=== PATIENT | female | born 1935 | race Caucasian/White ===

== ENCOUNTER → 2017-04-17 | Outpatient (CLI) | payer OTHER ==
[~2017-04-17] MED LIST: ACET-1257 PO; ADVIN10/60 INH; ISOS30TA35 PO; LEVO88TA21 PO; LEVO88TA3 PO; METO200T29 PO; NITR-5 PO; OXYC-57 PO; clindamycin
== END | disposition home or self-care (01) ==
LOC: C.LABSPEC 16:02
PROVIDERS: ATTEND Urology
DX: N20.0 Calculus of kidney (principal)

== ENCOUNTER → 2017-04-17 | Outpatient (CLI) | payer OTHER ==
--- NOTE | 2017-04-17 13:19 | DIAGNOSTIC IMAGING REPORT ---
KUB HISTORY: Follow-up study in a patient with right-sided nephrolithiasis. N20.0 Kidney stone on right [id number] COMPARISON: CT abdomen and pelvis 01/13/2012 FINDINGS: The bowel gas pattern is non-obstructive. There is no organomegaly. Calcifications projecting over the right kidney suggest nephrolithiasis measuring up to 1.7 and 1.1 cm respectively. No definite calculi are seen along the course of either ureter or within the region of the left kidney. There is a large amount of bowel gas which obscures the left renal shadow and partially obscures the right. Moderate stool volume of the rectum. No pneumoperitoneum or pneumatosis. No fracture. Bones appear moderately demineralized. Degenerative changes are seen throughout the spine with dextroscoliosis of the lumbar spine. IMPRESSION: 1. Large right-sided nephrolithiasis without definite ureteral calculi identified. 2. Left renal shadow is obscured by bowel gas. 3. Suggested constipation. Electronically signed by: Wilbert Sparrow M.D. 04/17/2017 1:18 PM Dictated Date/Time: 04/17/2017 1:15 PM
== END | disposition home or self-care (01) ==
LOC: C.RAD 11:54
PROVIDERS: ATTEND Urology
DX: N20.0 Calculus of kidney (principal)

== ENCOUNTER → 2017-05-01 | Day surgery (SDC) | payer OTHER ==
[2017-04-21 14:52] VITALS: Ht 157.5 cm; Wt 89.5 kg
--- NOTE | 2017-04-22 11:49 | DIAGNOSTIC IMAGING REPORT ---
CHEST 2 VIEWS ROUTINE CLINICAL HISTORY: STONES PREOPERATIVE CHEST COMPARISON STUDY: October 2011 FINDINGS: The examination is rotated. There is aortic tortuosity/ectasia. The heart is mildly enlarged. There is no failure. There is no focal pulmonary consolidation. There are no pleural effusions. Surgical clips project over the right axillary region. Irregularity of the right humeral head, likely is arthritic.[ IMPRESSION: No active disease in the chest. Electronically signed by: George Levi M.D. 04/22/2017 11:48 AM Dictated Date/Time: 04/22/2017 11:47 AM
[2017-04-22 12:18] LABS: BASO % 1.1 %; BASO ABS # 0.08 K/uL (0-0.2); EOS % 5.5 %; HEMATOCRIT 44.5 % (37-47); HEMOGLOBIN 15.4 g/dL (12.0-16.0); IG# 0.01 K/uL (0.00-0.02); LYMPH ABS # 0.95 K/uL (1.2-3.4); MEAN CELL VOLUME 91.2 fL (80-100); MEAN CORPUSCULAR HEMOGLOBIN 31.6 pg (25-34); MEAN CORPUSCULAR HGB CONC 34.6 g/dl (32-36); MEAN PLATELET VOLUME 9.8 fL (7.4-10.4); MONO % 10.8 %; MONO ABS # 0.79 K/uL (0.11-0.59); NEUT % 69.5 %; NEUT ABS # 5.09 K/uL (1.4-6.5); PLATELET COUNT 285 K/uL (130-400); RED CELL DISTRIBUTION WIDTH CV 12.7 % (11.5-14.5); RED CELL DISTRIBUTION WIDTH SD 42.2 fL (36.4-46.3); WHITE BLOOD COUNT 7.32 K/uL (4.8-10.8)
[2017-04-22 12:37] LABS: CREATININE 0.6 mg/dl (0.60-1.20); POTASSIUM 4.5 mmol/L (3.5-5.1)
--- NOTE | 2017-04-30 15:54 | DIAGNOSTIC IMAGING REPORT ---
KUB HISTORY: Follow-up study in a patient with nephrolithiasis N20.0 Kidney stone on right [id number] COMPARISON: KUB 04/17/2017, CT 03/13/2017. FINDINGS: The bowel gas pattern is non-obstructive. There is no organomegaly. There are 2 large right-sided renal calculi measuring up to 1.9 and 1.2 cm at the level of L3-L4 which appear unchanged considering difference in patient positioning. No definite left-sided nephrolithiasis or ureteral calculi identified. Renal shadows partially obscured by bowel gas. No pneumoperitoneum or pneumatosis. No fracture. Dextroscoliosis of the lumbar spine with severe multilevel discogenic degenerative changes. Mild to moderate degenerative changes of the bilateral hips. IMPRESSION: 1. Unchanged positioning of large right-sided renal calculi. 2. No ureteral calculi identified. Electronically signed by: Wilbert Sparrow M.D. 04/30/2017 3:53 PM Dictated Date/Time: 04/30/2017 3:51 PM
[~2017-05-01] VITALS: Ht 157.5 cm; Wt 89.5 kg
[~2017-05-01] MED LIST changes: +ACETAMINOPHEN 1000 MG/100 ML IV IV ONE; +ATROPINE SULFATE 0.1 MG/ML 5ML SYR IV PRN; +DEXAMETHASONE SOD INJ 4 MG/ML VIAL ONE; +EpHEDrine SULFATE INJ 50 MG/ML AMP IV PRN; +EpHEDrine SULFATE INJ 50 MG/ML AMP ONE; +FENTANYL CITRATE INJ 50 MCG/1 ML 2 ML VIAL IV PRN; +FENTANYL CITRATE INJ 50 MCG/1 ML 2 ML VIAL ONE; +GENTAMICIN INJ 80 MG in DEXTROSE 5% 100ML 100 ML IV SCH; +GENTAMICIN SULFATE 40 MG/ML 2 ML VIAL ONE; -ISOS30TA35 PO; +LACTATED RINGER'S 1000ML 1,000 ML IV SCH; -LEVO88TA21 PO; +LIDOCAINE HCL 2% 2 ML VIAL (20MG/ML) ONE; +MIDAZOLAM HCL 1 MG/ML 2ML VIAL ONE; +NITR1CAP33 PO; +ONDANSETRON INJ 2 MG/ML 2 ML VIAL IV PRN; +ONDANSETRON INJ 2 MG/ML 2 ML VIAL ONE; +PROPOFOL IV EMULSION 10 MG/ML 20 ML VIAL IV ONE; +SODIUM CHLORIDE 0.9% INJ 10 ML VIAL ONE; -clindamycin
--- NOTE | 2017-05-01 07:51 | History & Physical Bridge - SC ---
H&P Re-Evaluation Bridge Note: I have examined the patient, reviewed the History & Physical and in the interval since the performance of the History & Physical I have noted the following changes of clinical significance: No changes noted
--- NOTE | 2017-05-01 09:12 | Discharge Instructions-SurgCtr ---
Discharge Instructions Date of Service May 01, 2017. Visit Reason for Visit: Stones;Kidney On Right Side Discharge Discharge Diagnosis / Problem: post op eswl Discharge Goals Goal(s): Increase independence, Improve disease control Activity Recommendations Activity Limitations: resume your previous activity Anesthesia . Post Anesthesia Instructions: If you have had General Anesthesia or IV Sedation: * Do not drive today. * Resume driving when surgeon permits. * Do not make important decisions or sign legal documents today. * Call surgeon for: 1. Temperature elevations greater than 101 degrees F. 2. Uncontrollable pain. 3. Excessive bleeding. 4. Persistent nausea and vomiting. 5. Medication intolerance (nausea, vomiting or rash). * For nausea and vomiting use only clear liquids such as: tea, soda, bouillon until nausea subsides, then gradually increase diet as tolerated. * If you have any concerns or questions, call your surgeon's office. If physician is unavailable and it is an emergency, call 911 or go to the nearest emergency room. . Diet Recommendations Home Diet: resume previous diet Procedures Procedures Performed: Right Extracorporeal Shock Wave Lithotripsy -Renal Pending Studies Studies pending at discharge: no Medical Emergencies . Who to Call and When: Medical Emergencies: If at any time you feel your situation is an emergency, please call 911 immediately. . Non-Emergent Contact Non-Emergency issues call your: Urologist Call Non-Emergent contact if: temperature is above 100.5, your pain is worsening . . "Provider Documentation" section prepared by Mike Lamas. .
--- NOTE | 2017-05-01 09:13 | [facility] Post Operative Brief Note ---
Immediate Operative Summary Operative Date May 01, 2017. Pre-Operative Diagnosis Right Renal Stone Post-Operative Diagnosis Same as pre-op Procedure(s) Performed Right Extracorporeal Shock Wave Lithotripsy -Renal Surgeon Dr. Wil Lamas Workforce [employer]anner Surgeon(s) None Estimated Blood Loss 0 mL Findings Consistent with Post-Op Diagnosis Specimens None Anesthesia Type General
[2017-05-01 10:26] VITALS: TEMP 36.3
--- NOTE | 2017-05-01 10:51 | Anesthesiology Progress Note ---
Anesthesia Post Op Note Date & Time May 01, 2017 at 10:51 Vital Signs Pain Intensity: 0 Vital Signs Past 12 Hours Date Time Temp Pulse Resp B/P (MAP) Pulse Ox O2 Delivery O2 Flow Rate FiO2 05/01/17 10:26 36.3 58 20 187/85 (119) 95 Room Air 05/01/17 10:18 55 16 96 05/01/17 10:18 56 16 05/01/17 10:18 55 16 96 05/01/17 10:18 56 16 05/01/17 10:16 191/86 05/01/17 10:16 191/86 05/01/17 10:15 36.3 56 16 191/86 96 Room Air 05/01/17 10:13 56 1 05/01/17 10:13 56 1 96 05/01/17 10:13 56 1 05/01/17 10:13 56 1 96 05/01/17 10:10 191/85 05/01/17 10:10 191/85 05/01/17 10:08 55 15 96 05/01/17 10:08 55 15 96 05/01/17 10:08 55 15 05/01/17 10:08 55 15 05/01/17 10:06 193/89 05/01/17 10:06 193/89 05/01/17 10:03 55 0 05/01/17 10:03 55 0 05/01/17 10:03 55 0 96 05/01/17 10:03 55 0 96 05/01/17 10:00 179/86 05/01/17 10:00 179/86 05/01/17 09:59 161/115 05/01/17 09:59 161/115 05/01/17 09:58 56 15 05/01/17 09:58 56 15 05/01/17 09:58 56 15 97 05/01/17 09:58 56 15 97 05/01/17 09:53 56 22 05/01/17 09:53 56 22 96 05/01/17 09:53 56 22 96 05/01/17 09:53 56 22 05/01/17 09:43 60 05/01/17 09:43 60 99 05/01/17 09:43 60 99 05/01/17 09:43 60 05/01/17 09:40 203/104 05/01/17 09:40 203/104 05/01/17 09:38 61 11 100 05/01/17 09:38 61 11 05/01/17 09:38 61 11 100 05/01/17 09:38 61 11 05/01/17 09:36 197/113 05/01/17 09:36 197/113 05/01/17 09:33 61 1 100 05/01/17 09:33 61 1 100 05/01/17 09:33 62 1 05/01/17 09:33 62 1 05/01/17 09:30 203/103 05/01/17 09:30 203/103 05/01/17 09:28 59 13 05/01/17 09:28 59 13 05/01/17 09:28 61 13 100 05/01/17 09:28 61 13 100 05/01/17 09:26 200/99 05/01/17 09:26 200/99 05/01/17 09:25 199/99 05/01/17 09:25 199/99 05/01/17 09:23 64 5 193/106 100 05/01/17 09:23 36.2 65 18 193/106 100 Mask 6 05/01/17 09:23 64 5 05/01/17 09:23 64 5 05/01/17 09:23 64 5 193/106 100 05/01/17 06:30 36.5 64 16 168/98 (121) 97 Room Air Notes Mental Status: alert / awake / arousable, participated in evaluation Pt Amnestic to Procedure: Yes Nausea / Vomiting: adequately controlled Pain: adequately controlled Airway Patency, RR, SpO2: stable & adequate BP & HR: stable & adequate Hydration State: stable & adequate Anesthetic Complications: no major complications apparent
--- NOTE | 2017-05-01 10:52 | OPERATIVE REPORT ---
DATE OF OPERATION: 05/01/2017 PROCEDURE PERFORMED: Right ESWL. SURGEON: Dr. Lamas. ANESTHESIA: General. POSTOPERATIVE DIAGNOSIS: Same. INDICATIONS: The patient is an 82-year-old female with 2 relatively large right lower pole stones here for ESWL. DESCRIPTION OF THE PROCEDURE: The patient was given general anesthesia and preoperative antibiotics, was taken to the operating room with general anesthesia was given in the supine position. The stone that was more medial and close of the renal pelvis was targeted and 2500 shocks were given. The stone appeared light, so the hope was that it would fragment easily, but it did not appear to be fragmented rapidly. In the middle of the procedures, she was taken to level 5 and the procedure was completed, it was not clear that there was good fragmentation, but it was unclear how to what extent the fragmentation was done, the lower pole stone was targeted because it appeared that the other stone will require all the shocks. At the end of the procedure, the patient was transferred to the recovery room in stable condition. I attest to the content of the Intraoperative Record and any orders documented therein. Any exception s are noted below.
[2017-05-01 11:05] VITALS: BP 159/75; PULSE 60; O2SAT 97
== END | disposition home or self-care (01) ==
LOC: X.SURG 06:03
PROVIDERS: ATTEND Urology
DX: N20.0 Calculus of kidney (principal); J45.909 Unspecified asthma, uncomplicated; I10 Essential (primary) hypertension; M19.90 Unspecified osteoarthritis, unspecified site; E03.9 Hypothyroidism, unspecified; Z79.899 Other long term (current) drug therapy; Z98.890 Other specified postprocedural states; Z90.710 Acquired absence of both cervix and uterus; Z85.3 Personal history of malignant neoplasm of breast; Z86.19 Personal history of other infectious and parasitic diseases; Z88.0 Allergy status to penicillin; Z88.1 Allergy status to other antibiotic agents; Z88.2 Allergy status to sulfonamides

== ENCOUNTER → 2017-05-13 | Outpatient (CLI) | payer MEDICARE ==
[~2017-05-13] MED LIST changes: -ACETAMINOPHEN 1000 MG/100 ML IV IV ONE; -ATROPINE SULFATE 0.1 MG/ML 5ML SYR IV PRN; -DEXAMETHASONE SOD INJ 4 MG/ML VIAL ONE; -EpHEDrine SULFATE INJ 50 MG/ML AMP IV PRN; -EpHEDrine SULFATE INJ 50 MG/ML AMP ONE; -FENTANYL CITRATE INJ 50 MCG/1 ML 2 ML VIAL IV PRN; -FENTANYL CITRATE INJ 50 MCG/1 ML 2 ML VIAL ONE; -GENTAMICIN INJ 80 MG in DEXTROSE 5% 100ML 100 ML IV SCH; -GENTAMICIN SULFATE 40 MG/ML 2 ML VIAL ONE; -LACTATED RINGER'S 1000ML 1,000 ML IV SCH; -LIDOCAINE HCL 2% 2 ML VIAL (20MG/ML) ONE; -MIDAZOLAM HCL 1 MG/ML 2ML VIAL ONE; -ONDANSETRON INJ 2 MG/ML 2 ML VIAL IV PRN; -ONDANSETRON INJ 2 MG/ML 2 ML VIAL ONE; -PROPOFOL IV EMULSION 10 MG/ML 20 ML VIAL IV ONE; -SODIUM CHLORIDE 0.9% INJ 10 ML VIAL ONE
== END | disposition home or self-care (01) ==
LOC: C.LABSPEC 17:14
PROVIDERS: ATTEND Urology
DX: N20.0 Calculus of kidney (principal)

== ENCOUNTER → 2017-05-13 | Outpatient (CLI) | payer MEDICARE ==
--- NOTE | 2017-05-13 11:59 | DIAGNOSTIC IMAGING REPORT ---
KUB CLINICAL HISTORY: Nephrolithiasis. COMPARISON STUDY: CT of the abdomen and pelvis March 13, 2017 and KUB April 30, 2017. FINDINGS: A right pelvic calcification was shown to represent a phlebolith on prior CT. There has been interval fragmentation of the right renal calculi since KUB of April 30, 2017. In aggregate, the fragments within lower pole measure 1.7 cm. No ureteral calculi or fragments are identified. There is a large amount stool within the colon and rectum. There is no evidence for a bowel obstruction. IMPRESSION: Interval fragmentation of right renal calculi. Clustered fragment/calculi within the mid to lower pole of the right kidney. No ureteral calculi identified. Electronically signed by: Shahram Enriquez M.D. 05/13/2017 11:57 AM Dictated Date/Time: 05/13/2017 11:52 AM
== END | disposition home or self-care (01) ==
LOC: C.RAD 11:10
PROVIDERS: ATTEND Urology
DX: N20.0 Calculus of kidney (principal)

== ENCOUNTER 2023-03-03 09:58 | Inpatient (IN) ==
--- NOTE | 2023-03-03 10:24 | Emergency Department Note ---
Impression & Plan Acute metabolic encephalopathy, Confusion ED Provider Note NAME: KAYLEN TOLEDO AGE: 87 SEX: F : 1935 ARRIVES VIA: Walk-In INFORMANT: Patient, ED PROVIDER(S): Speedy Olvera MD CHIEF COMPLAINT: Confusion, hallucinations MEDICAL DECISION MAKING: Patient presents at the [facility] [place] outpatient clinic that exhibited confusion associated clearly with hallucinations. The patient does endorse hearing voices. IV was established but was obtained along with CT of the head and urinalysis. Patient was ordered IV fluids. Patient does have some decreased range of motion of the right upper extremity which sounds as though is chronic and she does endorse lymphedema and chronic issues. I did obtain some additional history from the patient's brother states that she has not been acting appropriately and has confused. Patient's blood work shows a normal white count H&H and platelet count. Kidney function with creatinine 1.3. TSH is elevated with normal free T4. Urinalysis does not look grossly infected. Bio fire negative. I did speak with the on- call hospital service Heena Richard PA-C the patient was admitted by Dr. Wilkinson. I did discuss starting the patient on antibiotics given the patient's history of partially treated UTI. Inpatient service order antibiotics. Discussion w/ other healthcare providers: Heena Richard PA-C and Dr. Wilkinson inpatient medicine Prior /Outside records reviewed: I reviewed a clinic assessment from [facility] from March 03. The patient was seen for kidney stone flank pain and confusion urine culture was ordered patient reportedly was to advised to go to the emergency department. Patient was seen on 02 20 at [facility] for left flank pain and had a CAT scan that showed an 11 mm left renal pelvis stone with mild hydro-. Patient was seen for flank pain at that time on February [address] [facility] Patient CT showed bilateral nephrolithiasis with 1.2 cm nonobstructing left renal pelvis calculus. They discussed her care with the patient's primary care office Poonam Schroeder PA-C and they referred here for further evaluation and treatment Differential diagnosis: Infection, dehydration, metabolic abnormality, hypo/hyperglycemia, electrolyte imbalance, anemia, UTI, pneumonia, thyroid dysfunction among others were considered. Diagnostics, as interpreted by me: ECG: Normal sinus rhythm, rate of 62, normal intervals, normal axis no ST elevations.6 Cardiac monitoring: An order was placed for continuous cardiac monitoring. The monitor shows a rate of 65 with sinus rhythm. Patient was placed on pulse oximetry Medical decision rules: None Imaging studies: I informally interpreted the patient's CT head which does not show obvious ICH with formal report to follow. I informally interpreted the patient's chest x-ray which does not show obvious pneumonia or pneumothorax with formal report to follow HPI: Patient presents due to concern for reported confusion and hallucinations. Additional history is gathered from triage and nursing which note that the patient was recently released from [facility] this morning for altered mental status and cellulitis. Patient reportedly had followed up at [address] [place] [address] for urology appointment and was suffering from confusion and hallucinations and was referred here. Patient does reside at [facility] and the certified driver examiner reportedly has noticed the symptoms ongoing 10 to 14 days. Patient denies any head or neck pain. No loose stools. Patient [place] any cough or fever or shortness of breath or chest pain. No back or abdominal pain. Patient does not describe any dysuria or hematuria patient does endorse hearing voices. PAST MEDICAL HISTORY: See Below PAST SURGICAL HISTORY: See Below SOCIAL HISTORY: See Below HOME MEDICATIONS: See Below ALLERGIES: See Below VITALS: See Below PHYSICAL EXAMINATION: GENERAL: NAD, non-toxic. Wearing glasses. Occasional laughing. EYE EXAM: Normal conjunctiva. PERRL, no anisocoria and EOM's grossly intact w/o pain. OROPHARYNX: Moist mucus membranes, grossly normal dentition. NECK: Supple, no nuchal rigidity, no adenopathy, non-tender. No signs of meningismus. FROM of the neck with good chin to chest and neck extension. No stridor. LUNGS: Clear to auscultation. Normal chest wall mechanics. HEART: NSR, no MRG. ABDOMEN: Abdomen soft, non-tender, no masses, no rebound or guarding. BACK: No CVA TTP. SKIN: No rashes and no bruising. UPPER EXTREMITIES: Upper extremities are grossly normal. Decreased range of motion of right upper extremity. LOWER EXTREMITIES: Grossly normal, no edema. NEURO EXAM: Awake and alert, follows basic commands, oriented to person place simple arithmetic, unsure as to the day of the week, cranial nerves II-XII grossly intact, normal speech, moves all 4 extremities. 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 Osteoarthritis Lymphedema of right arm History of cancer of right breast 2000- lumpectomy/radiation Anxiety and depression HTN (hypertension) Asthma Recurrent nephrolithiasis Surgical History History of knee surgery History of cardiac cath 05/2022 (d/t abnormal EKG/stress test)- no significant findings Nausea and vomiting after administration of anesthetic agent PONV with first lithotripsy procedure ("told had too much anesthesia for"), "given less anesthesia" with subsequent lithotripsy and had no issues with PONV History of total left knee replacement History of lithotripsy x2 History of colonoscopy History of total abdominal hysterectomy and bilateral salpingo-oophorectomy History of arthroscopy of knee Lateral Meniscectomy History of eye surgery History of cystoscopy Status post breast lumpectomy right Family History Sister Family history of diabetes mellitus Other Family history of colon cancer in mother Denies family history of Prostate cancer Social History Smoking Status: Unknown if ever smoked Second Hand Exposure: No; Do You Dip or Chew Tobacco: No; Hx Alcohol Use: No Hx Substance Use: No Preferred Language: Mongolian Communication Ability: Impaired Can Maker Required: No Beliefs That Will Affect Care: None Current Living Situation: Long-Term Current Living Situation Comment: [facility] Other Information That Helps Us Care for You: No Feels Safe at Home: Yes Safety Concerns: Feels Safe At This Time Assistive Devices: Cane Allergies Allergies Allergy/AdvReac Type Severity Reaction Status Date / Time celecoxib Allergy Intermediate ? Facial Verified 02/26/23 16:53 swelling ampicillin Allergy Unknown CAN'T Verified 02/26/23 16:53 REMEMBER cefprozil Allergy Unknown CAN'T Verified 02/26/23 16:53 REMEMBER ciprofloxacin Allergy Unknown CAN'T Verified 02/26/23 16:53 REMEMBER levofloxacin Allergy Unknown CAN'T Verified 02/26/23 16:53 REMEMBER lisinopril Allergy Unknown CAN'T Verified 02/26/23 16:53 REMEMBER Sulfa (Sulfonamide Allergy Unknown CAN'T Verified 02/26/23 16:53 Antibiotics) REMEMBER valdecoxib Allergy Unknown CAN'T Verified 02/26/23 16:53 REMEMBER ibuprofen AdvReac Intermediate Heart Verified 02/26/23 16:53 racing Home Meds Home Medications Medication Instructions Recorded Confirmed fluticasone 100 mcg-salmeterol 50 1 inh inhalation AMPM PRN ASTHMA 12/10/21 03/03/23 mcg/dose blistr powdr for inhalation levothyroxine 100 mcg capsule 100 mcg PO QAM 12/10/21 03/03/23 sertraline 50 mg tablet 50 mg PO QAM 12/10/21 03/03/23 albuterol sulfate 90 mcg/actuation 2 inh inhalation QID PRN Shortness 03/03/23 03/03/23 aerosol inhaler (Ventolin HFA) Of Breath Or Wheezing amlodipine 5 mg tablet 5 mg PO DAILY 03/03/23 03/03/23 furosemide 40 mg tablet 40 mg PO DAILY PRN volume 03/03/23 03/03/23 metoprolol succinate 200 mg 200 mg PO DAILY 03/03/23 03/03/23 tablet,extended release 24 hr (Toprol XL) prednisone 5 mg tablet See Rx Instructions .Route .COMPLEX 03/03/23 03/03/23 sulfamethoxazole 800 1 tab PO BID 03/03/23 03/03/23 mg-trimethoprim 160 mg tablet tocilizumab 400 mg/20 mL (20 520 mg IV UD 03/03/23 03/03/23 mg/mL) intravenous solution Previous Rx's Medication Instructions Recorded tramadol 50 mg tablet 50 mg PO BID PRN pain #11 tabs 02/26/23 Results & Data (ED) Vital Signs Vital Signs - 24 hr 03/03/23 10:08 03/03/23 10:31 Temperature 36.4 C L Temperature Source Oral Pulse Rate 62 66 Respiratory Rate 14 Blood Pressure 117/84 Blood Pressure Mean 95 Pulse Oximetry 93 Oxygen Delivery Method Room Air Sepsis New/Unexplained Change in Mental Status Yes Sepsis Action Taken by Nursing No Action Required Home Medications Current Medication List: was personally reviewed by me Laboratory Data Attestation: I reviewed the patient's lab results. 03/04/23 06:56 03/04/23 06:56 Lab Results 03/03/23 03/03/23 03/03/23 Range/Units 10:31 11:33 11:55 WBC 6.84 (4.8-10.8) K/ul RBC 4.71 (4.20-5.40) M/uL Hgb 15.2 (12.0-16.0) g/dl Hct 44.9 (37.0-47.0) % MCV 95.3 (80.0-100.0) fL MCH 32.3 (25.0-34.0) pg MCHC 33.9 (32.0-36.0) g/dL RDW Std Deviation 48.1 H (36.4-46.3) fL RDW Coeff of Parvin 13.6 (11.5-14.5) % Plt Count 247 (130-400) K/uL MPV 9.9 (9.4-12.4) fL Immature Gran % (Auto) 0.7 % Neut % (Auto) 72.6 % Lymph % (Auto) 13.7 % [place] % (Auto) 10.4 % Eos % (Auto) 1.9 % Baso % (Auto) 0.7 % Neut # (Auto) 4.96 (1.40-6.50) K/uL Lymph # (Auto) 0.94 L (1.20-3.40) K/uL [place] # (Auto) 0.71 H (0.11-0.59) K/uL Eos # (Auto) 0.13 (0.00-0.50) K/uL Baso # (Auto) 0.05 (0.00-0.20) K/uL Immature Gran # (Auto) 0.05 (0.01-0.20) K/uL Sodium 133 L (136-145) mmol/L Potassium TNP 3.4 L Chloride 95 L (98-107) mmol/L Carbon Dioxide 28 (21-32) mmol/L Anion Gap 10 (3-11) BUN 25 H (6-23) mg/dl Creatinine 1.33 H (0.6-1.2) mg/dl Est Cr Clr Drug Dosing Not Reportable Est GFR ( Amer) 42.1 ml/min Est GFR (Non-Af Amer) 36.4 ml/min BUN/Creatinine Ratio 18.8 (10-20) Glucose 108 H (70-99(Fasting)) mg/dl Calcium 9.7 (8.6-10.3) mg/dl Magnesium 1.8 (1.7-2.4) mg/dl Total Bilirubin 1.0 (0.2-1.0) mg/dl AST TNP 20 ALT 12 (7-52) U/L Alkaline Phosphatase 56 (34-104) U/L Total Protein 6.3 (6.0-8.3) gm/dl Albumin 4.1 (3.4-5.0) gm/dl Globulin 2.2 L (2.5-4.0) gm/dl Albumin/Globulin Ratio 1.9 (0.9-2) TSH 6.578 H (0.300-4.500) uIu/ml Free T4 1.54 (0.61-1.60) ng/dl Urine Color Urine Appearance (Clear) Urine pH (4.5-7.5) Ur Specific [place] (1.000-1.030) Urine Protein (Negative) Urine Glucose (UA) (Negative) Urine Ketones (Negative) Urine Blood (Negative) Urine Nitrite (Negative) Urine Bilirubin (Negative) Urine Urobilinogen (Negative) Ur Leukocyte Esterase (Negative) Urine WBC (Auto) (0-5) /hpf Urine RBC (Auto) (0-4) /hpf U Hyaline Cast (Auto) (0-5) /lpf U Epithel Cells (Auto) (0-5) /lpf Urine Bacteria (Auto) (Negative) Adenovirus (PCR) Not Detected (NotDetected) B. pertussis DNA (PCR) Not Detected (NotDetected) B.parapertussis DNA PCR Not Detected (NotDetected) C. pneumoniae DNA (PCR) Not Detected (NotDetected) Coronavirus OC43 (PCR) Not Detected (NotDetected) Coronavirus HKU1 (PCR) Not Detected (NotDetected) Coronavirus 229E (PCR) Not Detected (NotDetected) SARS-CoV-2 (PCR) Not Detected (NotDetected) Coronavirus NL63 (PCR) Not Detected (NotDetected) Human Metapneumovir PCR Not Detected (NotDetected) Influenza Type A (PCR) Not Detected (NotDetected) Influenza Type B (PCR) Not Detected (NotDetected) M. pneumoniae (PCR) Not Detected (NotDetected) Parainfluenza 1 (PCR) Not Detected (NotDetected) Parainfluenza 2 (PCR) Not Detected (NotDetected) Parainfluenza 3 (PCR) Not Detected (NotDetected) Parainfluenza 4 (PCR) Not Detected (NotDetected) RSV (PCR) Not Detected (NotDetected) Entero/Rhino (PCR) Not Detected (NotDetected) 03/03/23 Range/Units 12:15 WBC (4.8-10.8) K/ul RBC (4.20-5.40) M/uL Hgb (12.0-16.0) g/dl Hct (37.0-47.0) % MCV (80.0-100.0) fL MCH (25.0-34.0) pg MCHC (32.0-36.0) g/dL RDW Std Deviation (36.4-46.3) fL RDW Coeff of Parvin (11.5-14.5) % Plt Count (130-400) K/uL MPV (9.4-12.4) fL Immature Gran % (Auto) % Neut % (Auto) % Lymph % (Auto) % [place] % (Auto) % Eos % (Auto) % Baso % (Auto) % Neut # (Auto) (1.40-6.50) K/uL Lymph # (Auto) (1.20-3.40) K/uL [place] # (Auto) (0.11-0.59) K/uL Eos # (Auto) (0.00-0.50) K/uL Baso # (Auto) (0.00-0.20) K/uL Immature Gran # (Auto) (0.01-0.20) K/uL Sodium (136-145) mmol/L Potassium Chloride (98-107) mmol/L Carbon Dioxide (21-32) mmol/L Anion Gap (3-11) BUN (6-23) mg/dl Creatinine (0.6-1.2) mg/dl Est Cr Clr Drug Dosing Est GFR ( Amer) ml/min Est GFR (Non-Af Amer) ml/min BUN/Creatinine Ratio (10-20) Glucose (70-99(Fasting)) mg/dl Calcium (8.6-10.3) mg/dl Magnesium (1.7-2.4) mg/dl Total Bilirubin (0.2-1.0) mg/dl AST ALT (7-52) U/L Alkaline Phosphatase (34-104) U/L Total Protein (6.0-8.3) gm/dl Albumin (3.4-5.0) gm/dl Globulin (2.5-4.0) gm/dl Albumin/Globulin Ratio (0.9-2) TSH (0.300-4.500) uIu/ml Free T4 (0.61-1.60) ng/dl Urine Color Yellow Urine Appearance Clear (Clear) Urine pH 5.0 (4.5-7.5) Ur Specific [place] 1.012 (1.000-1.030) Urine Protein Trace H (Negative) Urine Glucose (UA) Negative (Negative) Urine Ketones Trace H (Negative) Urine Blood 2+ H (Negative) Urine Nitrite Negative (Negative) Urine Bilirubin Negative (Negative) Urine Urobilinogen Negative (Negative) Ur Leukocyte Esterase Negative (Negative) Urine WBC (Auto) 1-5 (0-5) /hpf Urine RBC (Auto) 10-30 H (0-4) /hpf U Hyaline Cast (Auto) 1-5 (0-5) /lpf U Epithel Cells (Auto) 10-20 H (0-5) /lpf Urine Bacteria (Auto) Negative (Negative) Adenovirus (PCR) (NotDetected) B. pertussis DNA (PCR) (NotDetected) B.parapertussis DNA PCR (NotDetected) C. pneumoniae DNA (PCR) (NotDetected) Coronavirus OC43 (PCR) (NotDetected) Coronavirus HKU1 (PCR) (NotDetected) Coronavirus 229E (PCR) (NotDetected) SARS-CoV-2 (PCR) (NotDetected) Coronavirus NL63 (PCR) (NotDetected) Human Metapneumovir PCR (NotDetected) Influenza Type A (PCR) (NotDetected) Influenza Type B (PCR) (NotDetected) M. pneumoniae (PCR) (NotDetected) Parainfluenza 1 (PCR) (NotDetected) Parainfluenza 2 (PCR) (NotDetected) Parainfluenza 3 (PCR) (NotDetected) Parainfluenza 4 (PCR) (NotDetected) RSV (PCR) (NotDetected) Entero/Rhino (PCR) (NotDetected) Administered Medications Amlodipine Besylate (Amlodipine Besylate 5 Mg Tab) 5 mg PO DAILY ALBA Stop: 04/03/23 08:59 Last Admin: 03/04/23 11:20 Dose: 5 mg Documented By: FRANKIE Ceftriaxone Sodium 2,000 mg/ (Dextrose) 50 mls @ 100 mls/hr IV Q24H ALBA; Protocol Stop: 03/13/23 17:29 Last Admin: 03/04/23 16:38 Dose: 100 mls/hr Documented By: Infusion: 03/03/23 20:58 Dose: Infused Documented By: Infusion: 03/03/23 20:10 Dose: 100 mls/hr Documented By: Infusion: 03/03/23 19:17 Dose: 0 mls/hr Documented By: Admin: 03/03/23 19:13 Dose: 100 mls/hr Documented By: LYNETTE Levothyroxine Sodium (Levothyroxine Sodium 100 Mcg Tablet) 100 mcg PO DAILYBB [facility] Stop: 04/03/23 06:29 Last Admin: 03/04/23 05:11 Dose: 100 mcg Documented By: YULIYA Metoprolol Succinate (Metoprolol Succ 50mg Ext Rel Tab) 200 mg PO DAILY ALBA Stop: 04/03/23 08:59 Last Admin: 03/04/23 08:26 Dose: 200 mg Documented By: FRANKIE Prednisone (Prednisone 5 Mg Tab) 15 mg PO DAILY ALBA Stop: 04/03/23 08:59 Last Admin: 03/04/23 08:26 Dose: 15 mg Documented By: FRANKIE Sertraline HCl (Sertraline Hcl 50 Mg Tablet) 50 mg PO QAM ALBA Stop: 04/03/23 08:59 Last Admin: 03/04/23 08:26 Dose: 50 mg Documented By: FRANKIE Discontinued Medications Amlodipine Besylate (Amlodipine Besylate 5 Mg Tab) 5 mg PO NOW STA Stop: 03/03/23 15:55 Last Admin: 03/03/23 16:14 Dose: 5 mg Documented By: JET Heparin Sodium (Porcine) (Heparin Sod 5,000 Unit/0.5 Ml Vial) 5,000 units SQ Q8 [facility] Stop: 04/02/23 21:59 Last Admin: 03/04/23 14:12 Dose: Not Given Documented By: Admin: 03/04/23 05:11 Dose: 5,000 units Documented By: Admin: 03/03/23 23:38 Dose: 5,000 units Documented By: ADBreanne Sodium Chloride (Nss) 500 mls @ 999 mls/hr IV .Q31M ALBA Stop: 03/03/23 11:45 Last Infusion: 03/03/23 12:49 Dose: Infused Documented By: Admin: 03/03/23 11:33 Dose: 999 mls/hr Documented By: JET Potassium Chloride 40 meq/ (Sodium Chloride) 1,020 mls @ 100 mls/hr IV .[id number] [facility] Stop: 03/04/23 02:11 Last Infusion: 03/04/23 05:27 Dose: Infused Documented By: Infusion: 03/03/23 20:11 Dose: 100 mls/hr Documented By: Infusion: 03/03/23 19:16 Dose: 0 mls/hr Documented By: Admin: 03/03/23 16:36 Dose: 100 mls/hr Documented By: [facility] Imaging Data Radiologist's Impression: Chest X-Ray 03/03/23 11:02 XR chest 1V portable HISTORY: weakness COMPARISON: Chest 11/07/2011. FINDINGS: Slightly rotated study. The heart remains mildly enlarged. Advanced degenerative changes within the right shoulder. No acute fractures identified. No focal lung consolidations to suggest a pneumonia. No evidence for pulmonary edema. No pleural effusions. No pneumothorax. IMPRESSION: No significant change compared to the prior study. No acute process. ACT 112: Negative or not required by law. Electronically signed by: Prieto Staton M.D. 03/03/2023 11:31 AM Abdomen/Pelvis CT 03/03/23 11:02 CT OF THE ABDOMEN AND PELVIS WITHOUT CONTRAST CLINICAL HISTORY: confusion; abdominal pain. H/o stones COMPARISON STUDY: CT of the abdomen and pelvis February 26, 2023. TECHNIQUE: Axial images of the abdomen and pelvis were obtained without IV contrast. Images were reviewed in the axial, sagittal, and coronal planes. Automated exposure control was utilized for the study. A dose lowering technique was utilized adhering to the principles of ALARA. FINDINGS: A 1.4 cm nodular density within the posterior right breast on axial image 1 of 341 is partially imaged on this examination. No pneumatosis, free air or portal venous gas is present. A 1.2 cm nonobstructing left renal pelvis calculus is unchanged. There are no ureteral calculi. There is no hydronephrosis. Additional bilateral renal calculi measure up to 5 mm. There is no evidence for a bowel obstruction. Moderate amount of stool within the colon is present. Unenhanced images of the liver, spleen and adrenal glands are unremarkable. Multiple cystic pancreatic lesions are noted. These were shown on CT of February 26, 2023. 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 Measure up to approximately 2 cm. Pancreatic ductal dilatation is better depicted on prior CT. There is no ascites. No lymphadenopathy within the abdomen or pelvis is noted. No acute fractures identified within the visualized skeletal structures. The gallbladder is likely surgically absent. IMPRESSION: 1. No change in a 1.2 cm nonobstructing left renal pelvis calculus. No ureteral calculi. No hydronephrosis. Bilateral nephrolithiasis. 2. No acute process within the abdomen or pelvis on unenhanced exam. 3. 1.4 cm nodular density within the posterior right breast. This may reflect postsurgical change or fibroglandular tissue. Correlation with surgical history is recommended. If indicated, a follow-up mammogram and ultrasound could be obtained to exclude a neoplasm. ACT 112: Positive. There are findings on this exam that require communication between the performing entity and the patient following Patient Test Result Information Act ([place] Act 112) guidelines. Electronically signed by: Shahram Enriquez M.D. 03/03/2023 1:08 PM Chest X-Ray 03/03/23 11:02 XR chest 1V portable HISTORY: weakness COMPARISON: Chest 11/07/2011. FINDINGS: Slightly rotated study. The heart remains mildly enlarged. Advanced degenerative changes within the right shoulder. No acute fractures identified. No focal lung consolidations to suggest a pneumonia. No evidence for pulmonary edema. No pleural effusions. No pneumothorax. IMPRESSION: No significant change compared to the prior study. No acute process. ACT 112: Negative or not required by law. Electronically signed by: Prieto Staton M.D. 03/03/2023 11:[address] 03/03/23 11:02 CT head/brain wo con CLINICAL HISTORY: 87 years-old Female with confusion. Acutely altered mental status TECHNIQUE: Multiple axial CT images of the head were obtained without contrast. A dose lowering technique was utilized adhering to the principles of ALARA. COMPARISON: None. FINDINGS: No acute intracranial hemorrhage, midline shift, intracranial mass, hydrocephalus, territorial ischemia or abnormal extra-axial collection. Cavum septum pellucidum and vergae. Involutional changes with chronic microvascular ischemic disease. The calvarium is intact. Prior bilateral lens repair. The paranasal sinuses, mastoid air cells, and middle ear cavities are clear. IMPRESSION: No acute intracranial abnormality. ACT 112: Negative or not required by law. The above report was generated using voice recognition software. It may contain grammatical, syntax or spelling errors. Electronically signed by: Rei Sparrow M.D. 03/03/2023 12:59 PM Discharge Plan Visit Data Chief Complaint: Confusion Stated Complaint: REF BY DOC, CONFUSION ED Provider: Speedy Olvera Discharge Problem: Acute metabolic encephalopathy, Confusion Patient Disposition: Admitted As Inpatient Discharge Instructions Interventions: ED Discharge Assessment Last Done: 03/03/23 17:05
[2023-03-03] MEDS ORDERED: SODIUM CHLORIDE 0.9% 500 ML IV SCH (11:15)
[2023-03-03 11:23] LABS: Basophils # (auto) 0.05 K/uL (0.00-0.20); Basophils % (auto) 0.7 %; Eosinophils # (auto) 0.13 K/uL (0.00-0.50); Eosinophils % (auto) 1.9 %; Hematocrit (blood only) 44.9 % (37.0-47.0); Hemoglobin 15.2 g/dl (12.0-16.0); Immature Granulocytes # (auto) 0.05 K/uL (0.01-0.20); Immature Granulocytes % (auto) 0.7 %; Lymphocytes # (auto) 0.94 K/uL (1.20-3.40); Lymphocytes % (auto) 13.7 %; Mean Corpuscular Hemoglobin 32.3 pg (25.0-34.0); Mean Corpuscular Hgb Conc 33.9 g/dL (32.0-36.0); Mean Corpuscular Volume 95.3 fL (80.0-100.0); Mean Platelet Volume 9.9 fL (9.4-12.4); Monocytes # (auto) 0.71 K/uL (0.11-0.59); Monocytes % (auto) 10.4 %; Neutrophils # (auto) 4.96 K/uL (1.40-6.50); Neutrophils % (auto) 72.6 %; Platelet Count 247 K/uL (130-400); RDW Coefficient of Variation 13.6 % (11.5-14.5); RDW Standard Deviation 48.1 fL (36.4-46.3); Red Blood Count 4.71 M/uL (4.20-5.40); White Blood Count 6.84 K/ul (4.8-10.8)
--- NOTE | 2023-03-03 11:32 | XRay Report ---
XR chest 1V portable HISTORY: weakness COMPARISON: Chest 11/07/2011. FINDINGS: Slightly rotated study. The heart remains mildly enlarged. Advanced degenerative changes wi thin the right shoulder. No acute fractures identified. No focal lung consolidations to suggest a pne umonia. No evidence for pulmonary edema. No pleural effusions. No pneumothorax. IMPRESSION: No significant change compared to the prior study. No acute process. ACT 112: Negative or not required by law. Electronically signed by: Prieto Staton M.D. 03/03/2023 11:31 AM
[2023-03-03 11:45] LABS: Alanine Aminotransferase 12 U/L (7-52); Albumin Globulin Ratio 1.9 (0.9-2); Albumin Level 4.1 gm/dl (3.4-5.0); Alkaline Phosphatase 56 U/L (34-104); Anion Gap 10 (3-11); BUN Creatinine Ratio 18.8 (10-20); Blood Urea Nitrogen 25 mg/dl (6-23); Calcium 9.7 mg/dl (8.6-10.3); Carbon Dioxide 28 mmol/L (21-32); Chloride 95 mmol/L (98-107); Est GFR (African American) 42.1 ml/min; Est GFR (Non-African American) 36.4 ml/min; Globulin 2.2 gm/dl (2.5-4.0); Glucose 108 mg/dl (70-99(Fasting)); Magnesium 1.8 mg/dl (1.7-2.4); Sodium 133 mmol/L (136-145); Total Protein 6.3 gm/dl (6.0-8.3)
[2023-03-03 12:14] LABS: Thyroid Stimulating Hormone 6.578 uIu/ml (0.300-4.500)
[2023-03-03 12:29] LABS: Potassium 3.4 mmol/L (3.5-5.1)
[2023-03-03 12:41] LABS: Appearance Urine Clear (Clear); Bacteria Urine Automated Negative (Negative); Bilirubin Urine Negative (Negative); Blood Urine 2+ (Negative); Color Urine Yellow; Glucose Urine UA Negative (Negative); Ketones Urine Trace (Negative); Leukocyte Esterase Urine Negative (Negative); Nitrite Urine Negative (Negative); Protein Urine Trace (Negative); Specific Gravity Urine 1.012 (1.000-1.030); Urobilinogen Urine Negative (Negative)
[2023-03-03 12:46] LABS: T4 Free Thyroxine 1.54 ng/dl (0.61-1.60)
[2023-03-03 12:47] LABS: Adenovirus PCR Not Detected (NotDetected); Bordetella parapertussis PCR Not Detected (NotDetected); Bordetella pertussis PCR Not Detected (NotDetected); Chlamydia pneumoniae PCR Not Detected (NotDetected); Coronavirus 229E PCR Not Detected (NotDetected); Coronavirus CoV-2 (COVID19)PCR Not Detected (NotDetected); Coronavirus HKU1 PCR Not Detected (NotDetected); Coronavirus NL63 PCR Not Detected (NotDetected); Coronavirus OC43PCR Not Detected (NotDetected); Human Metapneumovirus PCR Not Detected (NotDetected); Influenza A PCR Not Detected (NotDetected); Influenza B PCR Not Detected (NotDetected); Mycoplasma pneumoniae PCR Not Detected (NotDetected); Parainfluenza Virus 1 PCR Not Detected (NotDetected); Parainfluenza Virus 2 PCR Not Detected (NotDetected); Parainfluenza Virus 3 PCR Not Detected (NotDetected); Parainfluenza Virus 4 PCR Not Detected (NotDetected); Respiratory Syncytial VirusPCR Not Detected (NotDetected); Rhinovirus/Enterovirus PCR Not Detected (NotDetected)
--- NOTE | 2023-03-03 13:00 | CT Scan Report ---
CT head/brain wo con CLINICAL HISTORY: 87 years-old Female with confusion. Acutely altered mental status TECHNIQUE: Multiple axial CT images of the head were obtained without contrast. A dose lowering tech nique was utilized adhering to the principles of ALARA. COMPARISON: None. FINDINGS: No acute intracranial hemorrhage, midline shift, intracranial mass, hydrocephalus, territorial ischem ia or abnormal extra-axial collection. Cavum septum pellucidum and vergae. Involutional changes with chronic microvascular ischemic disease. The calvarium is intact. Prior bilateral lens repair. The paranasal sinuses, mastoid air cells, and m iddle ear cavities are clear. IMPRESSION: No acute intracranial abnormality. ACT 112: Negative or not required by law. The above report was generated using voice recognition software. It may contain grammatical, syntax o r spelling errors. Electronically signed by: Rei Sparrow M.D. 03/03/2023 12:59 PM
--- NOTE | 2023-03-03 13:09 | CT Scan Report ---
CT OF THE ABDOMEN AND PELVIS WITHOUT CONTRAST CLINICAL HISTORY: confusion; abdominal pain. H/o stones COMPARISON STUDY: CT of the abdomen and pelvis February 26, 2023. TECHNIQUE: Axial images of the abdomen and pelvis were obtained without IV contrast. Images were revi ewed in the axial, sagittal, and coronal planes. Automated exposure control was utilized for the tano dy. A dose lowering technique was utilized adhering to the principles of ALARA. FINDINGS: A 1.4 cm nodular density within the posterior right breast on axial image 1 of 341 is parti ally imaged on this examination. No pneumatosis, free air or portal venous gas is present. A 1.2 cm n onobstructing left renal pelvis calculus is unchanged. There are no ureteral calculi. There is no hyd ronephrosis. Additional bilateral renal calculi measure up to 5 mm. There is no evidence for a bowel obstruction. Moderate amount of stool within the colon is present. Unenhanced images of the liver, sp robert and adrenal glands are unremarkable. Multiple cystic pancreatic lesions are noted. These were sh own on CT of February 26, 2023. 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 Measure up to approximately 2 cm. Pancreatic ductal dilatation is better depicted on prior CT. There is no ascites. No lymphadenopathy within the abdomen or pelvis is noted. No acute fractures identified within the visualized skeletal structures. The gallbladder is likely surgically absent. IMPRESSION: 1. No change in a 1.2 cm nonobstructing left renal pelvis calculus. No ureteral calculi. No hydroneph rosis. Bilateral nephrolithiasis. 2. No acute process within the abdomen or pelvis on unenhanced exam. 3. 1.4 cm nodular density within the posterior right breast. This may reflect postsurgical change or fibroglandular tissue. Correlation with surgical history is recommended. If indicated, a follow-up ma mmogram and ultrasound could be obtained to exclude a neoplasm. ACT 112: Positive. There are findings on this exam that require communication between the performing entity and the patient following Patient Test Result Information Act ([place] Act 112) guidelines. Electronically signed by: Shahram Enriquez M.D. 03/03/2023 1:08 PM
--- NOTE | 2023-03-03 14:26 | History & Physical Report ---
Date of Service March 03, 2023 Assessment & Plan (1) Acute metabolic encephalopathy: (2) Recurrent nephrolithiasis: (3) CAD (coronary artery disease): (4) HTN (hypertension): (5) Asthma: (6) Anxiety and depression: Plan This is an 87yo F independent resident at [facility] with a PMH of hypothyroidism, asthma, giant cell arteritis on prednisone, hypertension, CAD, recurrent nephrolithiasis, history of breast cancer and other medical problems listed below who who presents with ongoing confusion in the setting of UTI and renal stone. AMS, ? Metabolic encephalopathy In setting of partially treated UTI, large L renal stone with confusion and hallucinations over past 2 weeks Completed 2/ days Cipro prescribed on 02/20, prescribed Bactrim on 03/02 and unclear if taking Urine and blood cultures pending, continue empiric Rocephin Also possibility of polypharmacy contributing due to patients ongoing AMS, lives alone, prescribed tramadol on 02/26 No h/o dementia previously. Admitting to visual hallucinations. Will obtain MRI brain today for further evaluation- will avoid contrast dye for now given GHANSHYAM Continue gentle hydration L renal stone Recurrent nephrolithiasis Following with urology for known L stone, refused transfer from [facility] ER twice over the past 2 months, follows with Dr. Preciado CT abd/pelvis with no change in a 1.2 cm nonobstructing left renal pelvis gal culus. No ureteral calculi. No hydronephrosis. Bilateral nephrolithiasis Flomax discontinued on 02/24 per ED note due to possibility of causing BLE edema Routine urology consult Acute kidney injury Cr 1.33 (baseline ~ 0.7) in setting of ? Bactrim use, med compliance unclear given recent confusion vs. large yet non-obstructive renal stone Giant Cell Arteritis Follows with Dr. Rudolph. Cont prednisone taper (currently should be taking 15mg daily through 03/18, then decrease according to med rec instructions) Receives monthly Tocilizumab inj in rheum clinic CAD Stable, cont aspirin, beta noe. Not on a home statin HTN BP elevated on arrival, most recent BP 171/96. Unclear what home medications patient has been taking. Ordered 5mg amlodipine, monitor Asthma At respiratory baseline; continue PRN rescue inhaler, Advair Anxiety and depression Continue Zoloft Abnormal CT abd/pelvis finding Presence of a 1.4 cm nodular density within the posterior right breast. This may reflect postsurgical change or fibroglandular tissue. Correlation with surgical history is recommended H/o breast cancer s/p lumpectomy and Tamoxifen, PCP to follow up for possibility of repeat mammogram DVT Ppx: SQ heparin Code status: FULL CODE for now - brother at bedside feels patient would elect DNR status but no POLST or advanced directives listed in Epic, no designated POA and lacking decision making capacity Will call [facility] again to see if any code status on file PCP: Amanda Dispo: admitted to med/surg Patient seen in collaboration with Dr. Wilkinson. Please see addendum. History of Present Illness Chief Complaint: confusion Primary Care Provider: Silvia Patel, This is an 87yo F independent resident at [facility] with a PMH of hypothyroidism, asthma, giant cell arteritis on prednisone, hypertension, CAD, recurrent nephrolithiasis, history of breast cancer and other medical problems listed below who who presents with ongoing confusion. Per extensive chart review, patient was seen at [facility] ED 02/20 with UTI and renal stone but signed out AMA. Staff at [facility] state she reportedly took 2.5 days (out of 7 day course) of ciprofloxacin and then stopped based on chart review. Patient was also prescribed Flomax during ED visit on 02/20 and returned to [facility] ED for pain with ambulation on left side and lower extremity edema that was thought to be a side effect of Flomax and improved once discontinued. Remains confused and significantly off of her mentation baseline per brother at bedside. 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 Unclear if patient has been taking medication appropriately or if at all since returning home from ED. Of note, was prescribed Tramadol on and Bactrim earlier this month but unclear if she has been taking either. Cannot obtain reliable history from patient as she is delirious and elderly brother at baseline has no knowledge of patient's medications. Was brought to a urology follow up appointment today by [facility] fleet driver for h/o large left renal calculus but was noted to be significantly confused with hallucinations and sent to [facility] ER for further evaluation. During interview, patient is laughing intermittently and calling me by the wrong name. Brother at baseline states this is significantly different than her baseline. Denies any pain. Unable to obtain full ROS 2/2 AMS. Denies auditory hallucinations but does endorse visual ones with "something floating on the wall". Brother states patient was paranoid about group outside of her H listening to their conversation. Allergies Allergy/AdvReac Type Severity Reaction Status Date / Time celecoxib Allergy Intermediate ? Facial Verified 02/26/23 16:53 swelling ampicillin Allergy Unknown CAN'T Verified 02/26/23 16:53 REMEMBER cefprozil Allergy Unknown CAN'T Verified 02/26/23 16:53 REMEMBER ciprofloxacin Allergy Unknown CAN'T Verified 02/26/23 16:53 REMEMBER levofloxacin Allergy Unknown CAN'T Verified 02/26/23 16:53 REMEMBER lisinopril Allergy Unknown CAN'T Verified 02/26/23 16:53 REMEMBER Sulfa (Sulfonamide Allergy Unknown CAN'T Verified 02/26/23 16:53 Antibiotics) REMEMBER valdecoxib Allergy Unknown CAN'T Verified 02/26/23 16:53 REMEMBER ibuprofen AdvReac Intermediate Heart Verified 02/26/23 16:53 racing Home Medications Medication Instructions Recorded Confirmed Type fluticasone 100 mcg-salmeterol 50 1 inh inhalation AMPM PRN ASTHMA 12/10/21 03/03/23 History mcg/dose blistr powdr for inhalation levothyroxine 100 mcg capsule 100 mcg PO QAM 12/10/21 03/03/23 History sertraline 50 mg tablet 50 mg PO QAM 12/10/21 03/03/23 History tramadol 50 mg tablet 50 mg PO BID PRN pain #11 tabs 02/26/23 03/03/23 Rx albuterol sulfate 90 mcg/actuation 2 inh inhalation QID PRN Shortness 03/03/23 03/03/23 History aerosol inhaler (Ventolin HFA) Of Breath Or Wheezing amlodipine 5 mg tablet 5 mg PO DAILY 03/03/23 03/03/23 History furosemide 40 mg tablet 40 mg PO DAILY PRN volume 03/03/23 03/03/23 History metoprolol succinate 200 mg 200 mg PO DAILY 03/03/23 03/03/23 History tablet,extended release 24 hr (Toprol XL) prednisone 5 mg tablet See Rx Instructions .Route .COMPLEX 03/03/23 03/03/23 History sulfamethoxazole 800 1 tab PO BID 03/03/23 03/03/23 History mg-trimethoprim 160 mg tablet tocilizumab 400 mg/20 mL (20 520 mg IV UD 03/03/23 03/03/23 History mg/mL) intravenous solution Past Med/Surg History Medical History (Updated 03/03/23 @ 15:33 by Heena Richard PA-C) CAD (coronary artery disease) 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 Osteoarthritis Lymphedema of right arm History of cancer of right breast 1999- lumpectomy/radiation Anxiety and depression HTN (hypertension) Asthma Recurrent nephrolithiasis Surgical History (Updated 03/03/23 @ 15:33 by Heena Richard PA-C) History of knee surgery History of cardiac cath 05/2022 (d/t abnormal EKG/stress test)- no significant findings Nausea and vomiting after administration of anesthetic agent PONV with first lithotripsy procedure ("told had too much anesthesia for"), "given less anesthesia" with subsequent lithotripsy and had no issues with PONV History of total left knee replacement History of lithotripsy x2 History of colonoscopy History of total abdominal hysterectomy and bilateral salpingo-oophorectomy History of arthroscopy of knee Lateral Meniscectomy History of eye surgery History of cystoscopy Status post breast lumpectomy right Family History Sister Family history of diabetes mellitus Other Family history of colon cancer in mother Denies family history of Prostate cancer Social History Smoking Status: Never smoker Do You Dip or Chew Tobacco: No; Hx Alcohol Use: No Hx Substance Use: No Preferred Language: Cymro Communication Ability: Effective 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 Required: No Beliefs That Will Affect Care: None Current Living Situation: Alone Current Living Situation Comment: halfway community independently Feels Safe at Home: Yes Assistive Devices: Cane, Hearing Aid - Bilateral and Other Review of Systems Review of Systems: Unobtainable due to cognitive status Physical Exam Physical Exam: General Appearance: WD/WN, vitals as above, NAD, sitting up in bed, obese, pleasant, delirious, requiring re-direction Head: normocephalic, atraumatic Eyes: normal inspection, PERRL, conjunctivae normal, anicteric sclerae ENT: external ear and nose normal, oropharynx normal Neck: normal visual inspection, trachea midline, no thyromegaly Respiratory: normal respiratory effort, diminished lung sounds throughout, no wheeze, rales, rhonchi. No accessory muscle use Cardiovascular: regular rate, rhythm, no murmur, normal peripheral pulses, no BLE edema. Vessels: no JVD Chest: normal inspection of chest Abdomen/GI: normal bowel sounds, soft, nontender, no hepatosplenomegaly Extremities/Musculoskeletal: no cyanosis or clubbing, extremities motor strength 5/5 Neurologic: PERRL, EOMI, accommodation nl, no face palsy, no dysarthria, CN's II-XI intact bilaterally and moves all extremities Psychiatric: A+Ox person and time but not place or situation Skin: no rashes, normal color, warm/dry Results & Data Results & Data Vital Signs (Past 12 Hours) Vital Signs Temp Pulse Resp BP BP Pulse Ox O2 Del Method 03/03/23 14:00 64 19 98 Room Air 03/03/23 13:30 65 23 98 Room Air 03/03/23 13:12 142/73 H 03/03/23 13:12 67 17 98 Room Air 03/03/23 13:00 64 15 97 Room Air 03/03/23 12:47 64 20 97 Room Air 03/03/23 12:21 140/71 03/03/23 12:00 63 16 96 03/03/23 11:30 62 15 03/03/23 11:02 99 Room Air 03/03/23 11:00 64 18 98 03/03/23 10:31 Room Air 03/03/23 10:31 66 03/03/23 10:08 36.4 C L 62 14 117/84 93 Room Air Laboratory Results Short CBC 03/03/23 Range/Units 10:31 WBC 6.84 (4.8-10.8) K/ul Hgb 15.2 (12.0-16.0) g/dl Hct 44.9 (37.0-47.0) % Plt Count 247 (130-400) K/uL BMP 03/03/23 03/03/23 10:31 11:55 Sodium 133 L Potassium TNP 3.4 L Chloride 95 L Carbon Dioxide 28 BUN 25 H Creatinine 1.33 H Glucose 108 H Calcium 9.7 Liver Function 03/03/23 03/03/23 Range/Units 10:31 11:55 Total Bilirubin 1.0 (0.2-1.0) mg/dl AST TNP 20 ALT 12 (7-52) U/L Alkaline Phosphatase 56 (34-104) U/L Albumin 4.1 (3.4-5.0) gm/dl Urine 03/03/23 Range/Units 12:15 Urine Color Yellow Urine Appearance Clear (Clear) Urine pH 5.0 (4.5-7.5) Ur Specific [place] 1.012 (1.000-1.030) Urine Protein Trace H (Negative) Urine Glucose (UA) Negative (Negative) Diagnostic Findings Abdomen/Pelvis CT 03/03/23 11:02 CT OF THE ABDOMEN AND PELVIS WITHOUT CONTRAST CLINICAL HISTORY: confusion; abdominal pain. H/o stones COMPARISON STUDY: CT of the abdomen and pelvis February 26, 2023. TECHNIQUE: Axial images of the abdomen and pelvis were obtained without IV contrast. Images were reviewed in the axial, sagittal, and coronal planes. Automated exposure control was utilized for the study. A dose lowering technique was utilized adhering to the principles of ALARA. FINDINGS: A 1.4 cm nodular density within the posterior right breast on axial image 1 of 341 is partially imaged on this examination. No pneumatosis, free air or portal venous gas is present. A 1.2 cm nonobstructing left renal pelvis calculus is unchanged. There are no ureteral calculi. There is no hydronephrosis. Additional bilateral renal calculi measure up to 5 mm. There is no evidence for a bowel obstruction. Moderate amount of stool within the colon is present. Unenhanced images of the liver, spleen and adrenal glands are unremarkable. Multiple cystic pancreatic lesions are noted. These were shown on CT of February 26, 2023. 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 Measure up to approximately 2 cm. Pancreatic ductal dilatation is better depicted on prior CT. There is no ascites. No lymphadenopathy within the abdomen or pelvis is noted. No acute fractures identified within the visualized skeletal structures. The gal lbladder is likely surgically absent. IMPRESSION: 1. No change in a 1.2 cm nonobstructing left renal pelvis calculus. No ureteral calculi. No hydronephrosis. Bilateral nephrolithiasis. 2. No acute process within the abdomen or pelvis on unenhanced exam. 3. 1.4 cm nodular density within the posterior right breast. This may reflect postsurgical change or fibroglandular tissue. Correlation with surgical history is recommended. If indicated, a follow-up mammogram and ultrasound could be obtained to exclude a neoplasm. ACT 112: Positive. There are findings on this exam that require communication between the performing entity and the patient following Patient Test Result Information Act ([place] Act 112) guidelines. Electronically signed by: Shahram Enriquez M.D. 03/03/2023 1:08 PM Chest X-Ray 03/03/23 11:02 XR chest 1V portable HISTORY: weakness COMPARISON: Chest 11/07/2011. FINDINGS: Slightly rotated study. The heart remains mildly enlarged. Advanced degenerative changes within the right shoulder. No acute fractures identified. No focal lung consolidations to suggest a pneumonia. No evidence for pulmonary edema. No pleural effusions. No pneumothorax. IMPRESSION: No significant change compared to the prior study. No acute process. ACT 112: Negative or not required by law. Electronically signed by: Prieto Staton M.D. 03/03/2023 11:[address] 03/03/23 11:02 CT head/brain wo con CLINICAL HISTORY: 87 years-old Female with confusion. Acutely altered mental status TECHNIQUE: Multiple axial CT images of the head were obtained without contrast. A dose lowering technique was utilized adhering to the principles of ALARA. COMPARISON: None. FINDINGS: No acute intracranial hemorrhage, midline shift, intracranial mass, hydrocephalus, territorial ischemia or abnormal extra-axial collection. Cavum septum pellucidum and vergae. Involutional changes with chronic microvascular ischemic disease. The calvarium is intact. Prior bilateral lens repair. The paranasal sinuses, mastoid air cells, and middle ear cavities are clear. IMPRESSION: No acute intracranial abnormality. ACT 112: Negative or not required by law. The above report was generated using voice recognition software. It may contain grammatical, syntax or spelling errors. Electronically signed by: Rei Sparrow M.D. 03/03/2023 12:59 PM Supervising Physician Co-Signing Physician Notes Pt seen and examined by myself, Ashleigh Wilkinson MD on the day of service. Care was coordinated with Heena Richard PA-C. 87yoF presenting with AMS. Pt oriented to name and date, states that she is at her residence. Hallucinating. Reportedly recent treatment for a UTI, repeat testing ordered, continue IV antibiotic treatment. Head CT unremarkable, MRI brain pending. Pt on chronic steroids- consider as a possible cause of change in mental status/mood/personality. Hold sedating meds- also recently on tramadol. Monitor electrolytes- replete as needed. Consider Neuro and psych consults. Otherwise as above
[2023-03-03] MEDS ORDERED: ALBUTEROL HFA 8 GM INHALER INH PRN (15:50)
[2023-03-03] MEDS ORDERED: amLODIPine BESYLATE 5 MG TAB PO STA (15:54)
[2023-03-03] MEDS ORDERED: POTASSIUM CHLORIDE 40 MEQ in SODIUM CHLORIDE 0.9% 1,000 ML IV SCH (16:00)
[2023-03-03] MEDS ORDERED: FLUTICASONE/VILANTEROL 100/25MCG 14 PUFFS/INHALER INH PRN (16:02)
--- NOTE | 2023-03-03 16:47 | Electrocardiogram Report ---
Test Reason : Blood Pressure : / mmHG Vent. Rate : 062 BPM Atrial Rate : 062 BPM P-R Int : 174 ms QRS Dur : 098 ms QT Int : 422 ms P-R-T Axes : 091 001 024 degrees QTc Int : 428 ms Normal sinus rhythm with sinus arrhythmia Normal ECG When compared with ECG of 22-APR-2017 11:49, Nonspecific T wave abnormality now evident in Inferior leads T wave amplitude has decreased in Anterolateral leads Confirmed by Hakeem Rodrigues ([id number]) on 03/03/2023 4:47:07 PM Referred By: REFERRED SELF Confirmed By:Hakeem Rodrigues
[2023-03-03] MEDS ORDERED: POLYETHYLENE (MIRALAX) 17 GM PACK PO PRN (18:07)
[2023-03-03] MEDS ORDERED: ACETAMINOPHEN 325 MG TAB PO PRN (18:07)
[2023-03-03] MEDS ORDERED: ONDANSETRON INJ 2 MG/ML 2 ML VIAL IV PRN (18:07)
[2023-03-03] MEDS: cefTRIAXone SODIUM 2,000 MG in DEXTROSE 5 % MINI-B 50 ML IV SCH (19:13)
--- NOTE | 2023-03-03 19:59 | Magnetic Resonance Report ---
Exam(s): MRI HEAD Without Contrast EXAM: MR Head Without Intravenous Contrast CLINICAL HISTORY: Reason for exam: confusion. TECHNIQUE: Magnetic resonance images of the head/brain without intravenous contrast in multiple planes. COMPARISON: No relevant prior studies available. FINDINGS: No acute territorial infarct. No acute intracranial hemorrhage. No midline shift or mass effect. The territorial otero-white matter differentiation is maintained throughout. Age-related cerebral volume loss. Periventricular and subcortical white matter T2 signal intensity, consistent with chronic microangiopathy. The visualized orbits appear grossly unremarkable. The calvarium is intact. The visualized paranasal sinuses and mastoid air cells are grossly clear. IMPRESSION: No acute territorial infarct. No acute intracranial hemorrhage. No midline shift or mass effect. Electronically signed by: Gabriel Zimmerman MD 03/03/23 19:58 PM
[2023-03-03] MEDS: HEPARIN SOD 5,000 UNIT/0.5 ML VIAL SQ SCH (23:38)
[2023-03-04] MEDS: HEPARIN SOD 5,000 UNIT/0.5 ML VIAL SQ SCH ×3 (05:11→20:06)
[2023-03-04] MEDS: LEVOTHYROXINE SODIUM 100 MCG TABLET PO SCH (05:11)
[2023-03-04 07:34] LABS: Hematocrit (blood only) 39.8 % (37.0-47.0); Hemoglobin 13.7 g/dl (12.0-16.0); Mean Corpuscular Hemoglobin 32.6 pg (25.0-34.0); Mean Corpuscular Hgb Conc 34.4 g/dL (32.0-36.0); Mean Corpuscular Volume 94.8 fL (80.0-100.0); Mean Platelet Volume 9.8 fL (9.4-12.4); Platelet Count 210 K/uL (130-400); RDW Coefficient of Variation 13.2 % (11.5-14.5); White Blood Count 7.68 K/ul (4.8-10.8)
[2023-03-04 07:56] LABS: BUN Creatinine Ratio 35.8 (10-20); Calcium 8.9 mg/dl (8.6-10.3); Creatinine Clr Calc Pharmacy 65.9 ml/min; Est GFR (African American) 92.9 ml/min; Est GFR (Non-African American) 80.2 ml/min; Potassium 4.1 mmol/L (3.5-5.1)
[2023-03-04] MEDS: SERTRALINE HCL 50 MG TABLET PO SCH (08:26)
[2023-03-04] MEDS: predniSONE 5 MG TAB PO SCH (08:26)
[2023-03-04] MEDS: METOPROLOL SUCC 50MG EXT REL TAB PO SCH (08:26)
[2023-03-04] MEDS: amLODIPine BESYLATE 5 MG TAB PO SCH (11:20)
--- NOTE | 2023-03-04 15:00 | Hospitalist Progress Note ---
Date of Service March 04, 2023 Assessment & Plan (1) Acute metabolic encephalopathy: (2) Recurrent nephrolithiasis: (3) CAD (coronary artery disease): (4) HTN (hypertension): (5) Asthma: (6) Anxiety and depression: Plan Per admitting service notes with addendum This is an 87yo F independent resident at [facility] with a PMH of hypothyroidism, asthma, giant cell arteritis on prednisone, hypertension, CAD, recurrent nephrolithiasis, history of breast cancer and other medical problems listed below who who presents with ongoing confusion in the setting of UTI and renal stone. Metabolic encephalopathy Likely from partially treated UTI, tramadol In setting of partially treated UTI, large L renal stone with confusion and hallucinations over past 2 weeks Completed 2/7 days Cipro prescribed on 02/20, prescribed Bactrim on 03/02 and unclear if taking Urine and blood cultures pending, continue empiric Rocephin Also possibility of polypharmacy contributing due to patients ongoing AMS, lives alone, prescribed tramadol on 02/26 No h/o dementia previously. Admitting to visual hallucinations. Will obtain MRI brain today for further evaluation- will avoid contrast dye for now given GHANSHYAM Continue gentle hydration 03/04 Brain MRI: Negative for acute process Currently patient is oriented x 2, answers all questions appropriately Urine culture : Negative so far Continue IV ceftriaxone day #2 Hold tramadol Monitor closely L renal stone Recurrent nephrolithiasis Following with urology for known L stone, refused transfer from [facility] ER twice over the past 2 months, follows with Dr. Preciado CT abd/pelvis with no change in a 1.2 cm nonobstructing left renal pelvis calculus. No ureteral calculi. No hydronephrosis. Bilateral nephrolithiasis Flomax discontinued on 02/24 per ED note due to possibility of causing BLE edema Routine urology consult 03/04 Per patient, urology service has evaluated her today and planning on stent placement Will confirm with urology service For now n.p.o. past midnight for possible intervention tomorrow Acute kidney injury Cr 1.33 (baseline ~ 0.7) in setting of ? Bactrim use, med compliance unclear given recent confusion vs. large yet non-obstructive renal stone 03/06 Creatinine back to baseline Giant Cell Arteritis Follows with Dr. Rudolph. Cont prednisone taper (currently should be taking 15mg daily through 03/18, then decrease according to med rec instructions) Receives monthly Tocilizumab inj in rheum clinic CAD Stable, cont aspirin, beta noe. Not on a home statin HTN BP elevated on arrival, most recent BP 171/96. Unclear what home medications patient has been taking. Ordered 5mg amlodipine, monitor Continue to monitor closely Asthma At respiratory baseline; continue PRN rescue inhaler, Advair Anxiety and depression Continue Zoloft Abnormal CT abd/pelvis finding Presence of a 1.4 cm nodular density within the posterior right breast. This may reflect postsurgical change or fibroglandular tissue. Correlation with surgical history is recommended H/o breast cancer s/p lumpectomy and Tamoxifen, PCP to follow up for possibility of repeat mammogram DVT Ppx: SQ heparin Code status: FULL CODE for now - brother at bedside feels patient would elect DNR status but no POLST or advanced directives listed in [facility], no designated POA and lacking decision making capacity Will call [facility] again to see if any code status on file PCP: Amanda Dispo: lives at SNF Admission and Anticipated Discharge Date Admission Date: March 03, 2023 Subjective Follow-up for metabolic encephalopathy, left nephrolithiasis, etc. Seen resting in bed, sitting up, having lunch In good spirits, comfortable, not in distress Oriented x 2 States she feels fine overall except for some discomfort in the left flank/back area Problems with urination, fevers or chills, nausea or vomiting No other new symptoms Review of Systems Review of Systems: all noted and negative except for above Physical Exam Physical Exam: General- oriented x 2, not in distress, speaks in sentences with no effort or accessory muscle use Eyes- anicteric Neck- no JVD Lungs- clear breath sounds bilaterally, no rales/wheezes Heart- normal rate, regular rhythm; no murmurs Abdomen- normal bowel sounds, nondistended, soft, nontender Extremities- no pretibial edema, no calf tenderness Neuro- alert, oriented x 2; no gross focal neurologic deficits Skin- warm & dry Results & Data Results & Data Vital Signs (Past 12 Hours) Vital Signs Temp Pulse Resp BP Pulse Ox O2 Del Method 03/04/23 09:00 Room Air 03/04/23 08:12 36.7 C 90 16 183/72 H 97 Room Air all noted and reviewed including below
--- NOTE | 2023-03-04 16:21 | Urology Consultation ---
Date of Consultation March 04, 2023 Assessment & Plan (1) Nephrolithiasis: Plan 87-year-old female with a history of nephrolithiasis admitted with acute metabolic encephalopathy. -CT abdomen pelvis again shows no change in the 1.2 cm nonobstructing left renal pelvis stone, no ureteral stones, no hydronephrosis and bilateral nephrolithiasis. -Afebrile and hemodynamically stable. -Labs reviewed-no leukocytosis, creatinine improved to 0.67 today. -Urinalysis on arrival not suggestive of infection. Urine and blood cultures are preliminary no growth. -Voiding spontaneously, continue to monitor. Bladder scan as needed. -No plan for urological intervention at this time. -Continue supportive care. -Continue antibiotic therapy and tailor as culture data becomes available. -Will arrange outpatient follow-up with our service. -Urology will follow peripherally. Please contact us with any further questions or concerns. Plan of care reviewed with Dr. Rios, on-call urologist History of Present Illness Attending Physician: Justin Claudio MD History of Present Illness 87 year old female who presented to the ED with confusion. On arrival she was afebrile and hemodynamically stable. Labs show no leukocytosis and creatinine of 1.33. Urinalysis with 2+ blood, negative nitrite, negative bacteria, negative leukocytes. CT abdomen pelvis again shows no change in the 1.2 cm nonobstructing left renal pelvis stone, no ureteral stones, no hydronephrosis and bilateral nephrolithiasis. Per chart review- Patient had a recent CT scan at [facility] 02/20 secondary to left flank pain. CT at that time showed an 11 mm left renal pelvis stone with mild left-sided hydronephrosis. Patient then was seen and evaluated at [facility] on 02/26 due to continued left flank pain. White count was 6.5, creatinine 0.9, urinalysis not indicative of infection. Urine culture on 02/[address] abd/pelvis reviewed - bilateral nephrolithiasis with a 1.2 cm nonobstructing left renal pelvis calculus. No ureteral calculi. She was then seen in the urology clinic on 03/02/23. Due to confusion and hallucinations, ED evaluation was recommended. Patient examined at bedside this AM. Awake, sitting up in bed on arrival. No acute distress. Unable to obtain HPI or ROS due to altered mental status. Allergies Allergy/AdvReac Type Severity Reaction Status Date / Time celecoxib Allergy Intermediate ? Facial Verified 02/26/23 16:53 swelling ampicillin Allergy Unknown CAN'T Verified 02/26/23 16:53 REMEMBER cefprozil Allergy Unknown CAN'T Verified 02/26/23 16:53 REMEMBER ciprofloxacin Allergy Unknown CAN'T Verified 02/26/23 16:53 REMEMBER levofloxacin Allergy Unknown CAN'T Verified 02/26/23 16:53 REMEMBER lisinopril Allergy Unknown CAN'T Verified 02/26/23 16:53 REMEMBER Sulfa (Sulfonamide Allergy Unknown CAN'T Verified 02/26/23 16:53 Antibiotics) REMEMBER valdecoxib Allergy Unknown CAN'T Verified 02/26/23 16:53 REMEMBER ibuprofen AdvReac Intermediate Heart Verified 02/26/23 16:53 racing Home Medications Medication Instructions Recorded Confirmed Type fluticasone 100 mcg-salmeterol 50 1 inh inhalation AMPM PRN ASTHMA 12/10/21 03/03/23 History mcg/dose blistr powdr for inhalation levothyroxine 100 mcg capsule 100 mcg PO QAM 12/10/21 03/03/23 History sertraline 50 mg tablet 50 mg PO QAM 12/10/21 03/03/23 History tramadol 50 mg tablet 50 mg PO BID PRN pain #11 tabs 02/26/23 03/03/23 Rx albuterol sulfate 90 mcg/actuation 2 inh inhalation QID PRN Shortness 03/03/23 03/03/23 History aerosol inhaler (Ventolin HFA) Of Breath Or Wheezing amlodipine 5 mg tablet 5 mg PO DAILY 03/03/23 03/03/23 History furosemide 40 mg tablet 40 mg PO DAILY PRN volume 03/03/23 03/03/23 History metoprolol succinate 200 mg 200 mg PO DAILY 03/03/23 03/03/23 History tablet,extended release 24 hr (Toprol XL) prednisone 5 mg tablet See Rx Instructions .Route .COMPLEX 03/03/23 03/03/23 History sulfamethoxazole 800 1 tab PO BID 03/03/23 03/03/23 History mg-trimethoprim 160 mg tablet tocilizumab 400 mg/20 mL (20 520 mg IV UD 03/03/23 03/03/23 History mg/mL) intravenous solution Patient History Medical History CAD (coronary artery disease) 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 Osteoarthritis Lymphedema of right arm History of cancer of right breast 2000- lumpectomy/radiation Anxiety and depression HTN (hypertension) Asthma Recurrent nephrolithiasis Surgical History History of knee surgery History of cardiac cath 05/2022 (d/t abnormal EKG/stress test)- no significant findings Nausea and vomiting after administration of anesthetic agent PONV with first lithotripsy procedure ("told had too much anesthesia for"), "given less anesthesia" with subsequent lithotripsy and had no issues with PONV History of total left knee replacement History of lithotripsy x2 History of colonoscopy History of total abdominal hysterectomy and bilateral salpingo-oophorectomy History of arthroscopy of knee Lateral Meniscectomy History of eye surgery History of cystoscopy Status post breast lumpectomy right Family History Sister Family history of diabetes mellitus Other Family history of colon cancer in mother Denies family history of Prostate cancer Social History Smoking Status: Unknown if ever smoked Second Hand Exposure: No; Do You Dip or Chew Tobacco: No; Hx Alcohol Use: No Hx Substance Use: No Preferred Language: Telugu Communication Ability: Impaired Survey Interviewer Required: No Beliefs That Will Affect Care: None Current Living Situation: [facility] Current Living Situation Comment: [address] [place] [address] Other Information That Helps Us Care for You: No Feels Safe at Home: Yes Safety Concerns: Feels Safe At This Time Assistive Devices: Cane Review of Systems Review of Systems: Unobtainable due to cognitive status Physical Exam Constitutional: no acute distress Pleasantly confused, occasional laughing Neck: normal visual inspection Respiratory: no respiratory distress and no labored breathing Musculoskeletal: Head/Neck/Chest: normocephalic Skin: No visible rashes or lesions to exposed skin areas Neurologic: awake Psychiatric: Orientation: alert and cooperative Results & Data Vital Signs (Past 12 Hours) Vital Signs Temp Pulse Resp BP Pulse Ox O2 Del Method 03/04/23 15:32 36.5 C 64 16 123/70 93 Room Air 03/04/23 09:00 Room Air 03/04/23 08:12 36.7 C 90 16 183/72 H 97 Room Air PG Care Time/CCT Total # of Minutes Spent Total Time Spent with Patient: Total time spent is greater than 50% in coordination of care (as documented) at patient's floor/unit and/or counseling patient: Coding Level of Care Code 17952 INT INP/OBS CARE 2/55MIN Diagnoses Nephrolithiasis N20.0
[2023-03-04] MEDS: cefTRIAXone SODIUM 2,000 MG in DEXTROSE 5 % MINI-B 50 ML IV SCH (16:38)
[2023-03-05] MEDS: LEVOTHYROXINE SODIUM 100 MCG TABLET PO SCH (05:44)
[2023-03-05 07:12] LABS: Mean Corpuscular Hgb Conc 33.3 g/dL (32.0-36.0); Mean Platelet Volume 9.8 fL (9.4-12.4); Platelet Count 189 K/uL (130-400); RDW Coefficient of Variation 13.3 % (11.5-14.5); RDW Standard Deviation 49.1 fL (36.4-46.3); Red Blood Count 3.94 M/uL (4.20-5.40); White Blood Count 8.61 K/ul (4.8-10.8)
[2023-03-05 07:23] LABS: BUN Creatinine Ratio 34.2 (10-20); Calcium 8.9 mg/dl (8.6-10.3); Creatinine Clr Calc Pharmacy 60.5 ml/min; Est GFR (Non-African American) 75.1 ml/min; Potassium 3.5 mmol/L (3.5-5.1)
--- NOTE | 2023-03-05 07:58 | Urology Progress Note ---
Date of Service March 05, 2023 Assessment & Plan (1) Nephrolithiasis: Plan 87-year-old female with a history of nephrolithiasis admitted with acute metabolic encephalopathy. -CT abdomen pelvis again shows no change in the 1.2 cm nonobstructing left renal pelvis stone, no ureteral stones, no hydronephrosis and bilateral nephrolithiasis. -Afebrile and hemodynamically stable. -Labs reviewed-WBC 8.61, creatinine 0.73. -Urine culture negative. Blood cultures preliminary no growth. On Ceftriaxone. -Voiding spontaneously, continue to monitor. Bladder scan as needed. -No plan for urological intervention at this time. -Continue supportive care. -Continue antibiotic therapy and tailor as culture data becomes available. -If there are any signs of deterioration or infection, we can revisit stent placement. Otherwise we will arrange outpatient follow-up with our service to discuss definitive stone management. -Urology will follow peripherally. Please contact us with any further questions or concerns. Admission and Anticipated Discharge Date Admission Date: March 03, 2023 Subjective Patient examined at bedside this AM. Asleep on arrival, awakened to name. No acute distress. Answering questions appropriately. She denies any pain or discomfort at present. Denies fevers, chills, nausea, vomiting. External urinary catheter in place Review of Systems Constitutional: as per Subjective / HPI Gastrointestinal: as per Subjective / HPI Genitourinary: as per Subjective / HPI Physical Exam Constitutional: no acute distress Neck: normal visual inspection Respiratory: no respiratory distress and no labored breathing Neurologic: awake Psychiatric: Orientation: alert and cooperative Results & Data Vital Signs (Past 12 Hours) Vital Signs Temp Pulse Resp BP Pulse Ox O2 Del Method 03/04/23 22:44 133/65 03/04/23 22:04 Room Air 03/04/23 20:04 36.4 C L 66 16 100/58 L 94 Room Air PG Care Time/CCT Total # of Minutes Spent Total Time Spent with Patient: Total time spent is greater than 50% in coordination of care (as documented) at patient's floor/unit and/or counseling patient: Coding Level of Care Code 87020 SUB INP/OBS CARE 1/25MIN Diagnoses Nephrolithiasis N20.0
[2023-03-05] MEDS: SERTRALINE HCL 50 MG TABLET PO SCH (08:30)
[2023-03-05] MEDS: predniSONE 5 MG TAB PO SCH (08:30)
[2023-03-05] MEDS: METOPROLOL SUCC 50MG EXT REL TAB PO SCH (08:30)
[2023-03-05] MEDS: amLODIPine BESYLATE 5 MG TAB PO SCH (08:30)
[2023-03-05] MEDS: HEPARIN SOD 5,000 UNIT/0.5 ML VIAL SQ SCH ×2 (08:34→19:20)
--- NOTE | 2023-03-05 15:02 | Hospitalist Progress Note ---
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 Metabolic encephalopathy Likely from partially treated UTI, tramadol In setting of partially treated UTI, large L renal stone with confusion and hallucinations over past 2 weeks Completed 2/7 days Cipro prescribed on 02/20, prescribed Bactrim on 03/02 and unclear if taking Urine and blood cultures pending, continue empiric Rocephin Also possibility of polypharmacy contributing due to patients ongoing AMS, lives alone, prescribed tramadol on 02/26 No h/o dementia previously. Admitting to visual hallucinations. Will obtain MRI brain today for further evaluation- will avoid contrast dye for now given GHANSHYAM Continue gentle hydration 03/05 Brain MRI: Negative for acute process Currently patient is oriented x 2, answers all questions appropriately Urine culture : Negative so far Continue IV ceftriaxone day #3 Hold tramadol Mental status improving PT OT evaluation L renal stone Recurrent nephrolithiasis Following with urology for known L stone, refused transfer from [facility] ER twice over the past 2 months, follows with Dr. Preciado CT abd/pelvis with no change in a 1.2 cm nonobstructing left renal pelvis calculus. No ureteral calculi. No hydronephrosis. Bilateral nephrolithiasis Flomax discontinued on 02/24 per ED note due to possibility of causing BLE edema Routine urology consult 03/05 Per urology service: No acute intervention for now Acute kidney injury Cr 1.33 (baseline ~ 0.7) in setting of ? Bactrim use, med compliance unclear given recent confusion vs. large yet non-obstructive renal stone Creatinine back to baseline Giant Cell Arteritis Follows with Dr. Rudolph. Cont prednisone taper (currently should be taking 15mg daily through 03/18, then decrease according to med rec instructions) Receives monthly Tocilizumab inj in rheum clinic CAD Stable, cont aspirin, beta noe. Not on a home statin HTN Blood pressure improving Continue amlodipine 5 mg daily Asthma At respiratory baseline; continue PRN rescue inhaler, Advair Anxiety and depression Continue Zoloft Abnormal CT abd/pelvis finding Presence of a 1.4 cm nodular density within the posterior right breast. This may reflect postsurgical change or fibroglandular tissue. Correlation with surgical history is recommended H/o breast cancer s/p lumpectomy and Tamoxifen, PCP to follow up for possibility of repeat mammogram DVT Ppx: SQ heparin Code status: FULL CODE for now - brother at bedside feels patient would elect DNR status but no POLST or advanced directives listed in Epic, no designated POA and lacking decision making capacity Will call [facility] again to see if any code status on file PCP: Amanda Dispo: lives at SNF Admission and Anticipated Discharge Date Admission Date: March 03, 2023 Subjective Follow-up for encephalopathy, possible partially treated UTI, left renal stone, etc. Sleeping but easily awakened, in good spirits, comfortable, not in distress Oriented x 3, answering all questions appropriately States she feels improved compared to admission Denies abdominal pain, back pain, nausea vomiting fevers or chills Denies problems with urination No other new symptom Review of Systems Review of Systems: all noted and negative except for above Physical Exam Physical Exam: General- oriented x 3, not in distress, speaks in sentences with no effort or accessory muscle use Eyes- anicteric Neck- no JVD Lungs- clear breath sounds bilaterally, no rales/wheezes Heart- normal rate, regular rhythm; no murmurs Abdomen- normal bowel sounds, nondistended, soft, nontender Extremities- no pretibial edema, no calf tenderness Neuro- alert, oriented x 3; no gross focal neurologic deficits Skin- warm & dry Results & Data Results & Data Vital Signs (Past 12 Hours) Vital Signs Temp Pulse Resp BP Pulse Ox O2 Del Method 03/05/23 14:36 37.0 C 61 16 124/79 94 Room Air 03/05/23 09:11 Room Air 03/05/23 08:29 62 143/71 H 03/05/23 07:58 36.3 C L 56 L 16 153/75 H 96 Room Air all noted and reviewed including below
[2023-03-05] MEDS: cefTRIAXone SODIUM 2,000 MG in DEXTROSE 5 % MINI-B 50 ML IV SCH (16:54)
[2023-03-06] MEDS: LEVOTHYROXINE SODIUM 100 MCG TABLET PO SCH (06:24)
[2023-03-06] MEDS: SERTRALINE HCL 50 MG TABLET PO SCH (09:04)
[2023-03-06] MEDS: amLODIPine BESYLATE 5 MG TAB PO SCH (09:04)
[2023-03-06] MEDS: predniSONE 5 MG TAB PO SCH (09:05)
[2023-03-06] MEDS: METOPROLOL SUCC 50MG EXT REL TAB PO SCH (09:08)
[2023-03-06] MEDS: HEPARIN SOD 5,000 UNIT/0.5 ML VIAL SQ SCH ×2 (09:11→20:22)
--- NOTE | 2023-03-06 11:45 | Urology Progress Note ---
Date of Service March 06, 2023 Assessment & Plan (1) Nephrolithiasis: Plan 87-year-old female with a history of nephrolithiasis admitted with acute metabolic encephalopathy felt to be secondary to partially treated UTI and polypharmacy. -CT abdomen pelvis on admit shows no change in the 1.2 cm nonobstructing left renal pelvis stone, no ureteral stones, no hydronephrosis and bilateral nephrolithiasis. -Afebrile and hemodynamically stable. -Labs 03/05 reviewed-WBC 8.61, creatinine 0.73. -Urine culture negative. Blood cultures preliminary no growth x48 hours. On Ceftriaxone. -Voiding spontaneously, continue to monitor. External catheter in place. Bladder scan as needed. -No plan for urological intervention at this time. -Will check a renal ultrasound today due to intermittent left flank pain to evaluate for any hydronephrosis. -Continue supportive care and antibiotic therapy. -If there are any signs of deterioration or infection, we can revisit stent placement. Otherwise we will arrange outpatient follow-up with our service to discuss definitive stone management. -Urology will follow peripherally. Please contact us with any further questions or concerns. Plan of care reviewed with Dr. Siu, on-call urologist. Admission and Anticipated Discharge Date Admission Date: March 03, 2023 Subjective Patient examined at bedside this AM. Awake, resting in bed on arrival. No acute distress. Answering questions appropriately. She denies any pain or discomfort at present. Reports occasional mild left flank pain. Denies fevers, chills, nausea, vomiting. External urinary catheter in place. Urine is concentrated yellow. Review of Systems Constitutional: as per Subjective / HPI Gastrointestinal: as per Subjective / HPI Genitourinary: as per Subjective / HPI Physical Exam Constitutional: no acute distress Neck: normal visual inspection Respiratory: no respiratory distress and no labored breathing Musculoskeletal: Head/Neck/Chest: normocephalic Neurologic: awake Psychiatric: Orientation: alert and cooperative Results & Data Vital Signs (Past 12 Hours) Vital Signs Temp Pulse Resp BP Pulse Ox O2 Del Method 03/06/23 09:39 Room Air 03/06/23 09:07 64 125/67 95 Room Air 03/06/23 07:42 36.5 C 59 L 18 136/71 95 Room Air PG Care Time/CCT Total # of Minutes Spent Total Time Spent with Patient: Total time spent is greater than 50% in coordination of care (as documented) at patient's floor/unit and/or counseling patient: Coding Level of Care Code 91214 SUB INP/OBS CARE MIN Diagnoses Nephrolithiasis N20.0
--- NOTE | 2023-03-06 16:32 | Hospitalist Progress Note ---
Date of Service March 06, 2023 Assessment & Plan (1) Acute metabolic encephalopathy: (2) Recurrent nephrolithiasis: (3) CAD (coronary artery disease): (4) HTN (hypertension): (5) Asthma: (6) Anxiety and depression: Plan Per admitting service notes with addendum This is an 87yo F independent resident at [facility] with a PMH of hypothyroidism, asthma, giant cell arteritis on prednisone, hypertension, CAD, recurrent nephrolithiasis, history of breast cancer and other medical problems listed below who who presents with ongoing confusion in the setting of UTI and renal stone. Metabolic encephalopathy Likely from partially treated UTI, tramadol In setting of partially treated UTI, large L renal stone with confusion and hallucinations over past 2 weeks Completed 2/7 days Cipro prescribed on 02/20, prescribed Bactrim on 03/02 and unclear if taking Urine and blood cultures pending, continue empiric Rocephin Also possibility of polypharmacy contributing due to patients ongoing AMS, lives alone, prescribed tramadol on 02/26 No h/o dementia previously. Admitting to visual hallucinations. Will obtain MRI brain today for further evaluation- will avoid contrast dye for now given GHANSHYAM Continue gentle hydration 03/05 Brain MRI: Negative for acute process Currently patient is oriented x 2, answers all questions appropriately Urine culture : Negative so far Continue IV ceftriaxone day #3 Hold tramadol Mental status improving PT OT evaluation 03/06 Patient is oriented x 3, back to her baseline mental status Urine culture negative Blood cultures: Negative Continue empiric IV ceftriaxone day #4, plan to transition to oral cefdinir to complete 10-day course upon discharge Add probiotics daily for at least 1 month PT OT evaluation pending Anticipate transition to [facility] L renal stone Recurrent nephrolithiasis Following with urology for known L stone, refused transfer from [facility] ER twice over the past 2 months, follows with Dr. Preciado CT abd/pelvis with no change in a 1.2 cm nonobstructing left renal pelvis calculus. No ureteral calculi. No hydronephrosis. Bilateral nephrolithiasis Flomax discontinued on 02/24 per ED note due to possibility of causing BLE edema Routine urology consult 03/06 Per urology service: No acute intervention for now Renal ultrasound ordered Appreciate the recommendations Acute kidney injury Cr 1.33 (baseline ~ 0.7) in setting of ? Bactrim use, med compliance unclear given recent confusion vs. large yet non-obstructive renal stone Creatinine back to baseline Giant Cell Arteritis Follows with Dr. Rudolph. Cont prednisone taper (currently should be taking 15mg daily through 03/18, then decrease according to med rec instructions) Receives monthly Tocilizumab inj in rheum clinic CAD Stable, cont aspirin, beta noe. Not on a home statin HTN Blood pressure improving Continue amlodipine 5 mg daily Asthma At respiratory baseline; continue PRN rescue inhaler, Advair Anxiety and depression Continue Zoloft Abnormal CT abd/pelvis finding Presence of a 1.4 cm nodular density within the posterior right breast. This may reflect postsurgical change or fibroglandular tissue. Correlation with surgical history is recommended H/o breast cancer s/p lumpectomy and Tamoxifen, PCP to follow up for possibility of repeat mammogram DVT Ppx: SQ heparin Code status: FULL CODE for now - brother at bedside feels patient would elect DNR status but no POLST or advanced directives listed in Epic, no designated POA and lacking decision making capacity Will call [facility] again to see if any code status on file PCP: Amanda Dispo: lives at SNF Admission and Anticipated Discharge Date Admission Date: March 03, 2023 Subjective Follow-up for encephalopathy, etc. Seen resting in bed sleeping but easily awakened In good spirits, smiling, oriented x 3 Answering all questions appropriately States she feels better overall Intermittent left flank discomfort but manageable No problems with urination No fevers or chills, nausea or vomiting No other symptoms Review of Systems Review of Systems: all noted and negative except for above Physical Exam Physical Exam: General- oriented x 3, not in distress, speaks in sentences with no effort or accessory muscle use Eyes- anicteric Neck- no JVD Lungs- clear BS BL Heart- normal rate, regular rhythm; no murmurs Abdomen- normal bowel sounds, nondistended, soft, no tenderness Extremities- no pretibial edema, no calf tenderness Neuro- alert, oriented x 3; no gross focal neurologic deficits Skin- warm & dry Results & Data Results & Data Vital Signs (Past 12 Hours) Vital Signs Temp Pulse Resp BP Pulse Ox O2 Del Method 03/06/23 15:58 36.6 C 58 L 18 114/73 94 Room Air 03/06/23 09:39 Room Air 03/06/23 09:07 64 125/67 95 Room Air 03/06/23 07:42 36.5 C 59 L 18 136/71 95 Room Air all noted and reviewed including below
[2023-03-06] MEDS: cefTRIAXone SODIUM 2,000 MG in DEXTROSE 5 % MINI-B 50 ML IV SCH (16:36)
--- NOTE | 2023-03-06 20:57 | Ultrasound Report ---
ULTRASOUND KIDNEYS AND BLADDER CLINICAL HISTORY: Left sided nephrolithiasis.. COMPARISON STUDY: Abdominal CT dated 03/03/2023. TECHNIQUE: Real-time, grayscale, and color flow sonography of the kidneys and bladder is performed. I mages are reviewed in the transverse and longitudinal planes. FINDINGS: Kidneys: The kidneys demonstrate mild cortical atrophy. Echotexture is normal. The right kidney measu res 10.2 x 5.1 x 4.6 cm and the left kidney measures 9.9 x 4.1 x 5.2 cm. There is no hydronephrosis. A 14 mm shadowing calculus is seen in the left renal pelvis. No shadowing calculi are identified in the right kidney. There is no sonographic evidence of contour deforming renal mass lesion. No perinep hric fluid is identified. Bladder: The bladder is decompressed and could not be assessed. IMPRESSION: 1. The kidneys demonstrate cortical atrophy and are without hydronephrosis. 2. The bladder was decompressed and could not be assessed. 3. A 14 mm shadowing calculus is noted in the left renal pelvis. ACT 112: Negative or not required by law. Electronically signed by: Jose Lunsford M.D. 03/06/2023 8:56 PM
[2023-03-07] MEDS: LEVOTHYROXINE SODIUM 100 MCG TABLET PO SCH (06:01)
[2023-03-07] MEDS: SERTRALINE HCL 50 MG TABLET PO SCH (08:19)
[2023-03-07] MEDS: predniSONE 5 MG TAB PO SCH (08:19)
[2023-03-07] MEDS: amLODIPine BESYLATE 5 MG TAB PO SCH (08:20)
[2023-03-07] MEDS: HEPARIN SOD 5,000 UNIT/0.5 ML VIAL SQ SCH ×2 (08:21→19:46)
[2023-03-07] MEDS: ADVANCED PROBIOTIC 1250 MG CAPSULE PO SCH ×2 (08:21→09:00)
[2023-03-07] MEDS: METOPROLOL SUCC 50MG EXT REL TAB PO SCH (12:36)
--- NOTE | 2023-03-07 17:21 | Hospitalist Progress Note ---
Date of Service March 07, 2023 Assessment & Plan (1) Acute metabolic encephalopathy: (2) Recurrent nephrolithiasis: (3) CAD (coronary artery disease): (4) HTN (hypertension): (5) Asthma: (6) Anxiety and depression: Plan Per admitting service notes with addendum This is an 87yo F independent resident at [facility] with a PMH of hypothyroidism, asthma, giant cell arteritis on prednisone, hypertension, CAD, recurrent nephrolithiasis, history of breast cancer and other medical problems listed below who who presents with ongoing confusion in the setting of UTI and renal stone. Metabolic encephalopathy Likely from partially treated UTI, tramadol In setting of partially treated UTI, large L renal stone with confusion and hallucinations over past 2 weeks Completed 2/7 days Cipro prescribed on 02/20, prescribed Bactrim on 03/02 and unclear if taking Urine and blood cultures pending, continue empiric Rocephin Also possibility of polypharmacy contributing due to patients ongoing AMS, lives alone, prescribed tramadol on 02/26 No h/o dementia previously. Admitting to visual hallucinations. Will obtain MRI brain today for further evaluation- will avoid contrast dye for now given GHANSHYAM Continue gentle hydration 03/05 Brain MRI: Negative for acute process Currently patient is oriented x 2, answers all questions appropriately Urine culture : Negative so far Continue IV ceftriaxone day #3 Hold tramadol Mental status improving PT OT evaluation 03/06 Patient is oriented x 3, back to her baseline mental status Urine culture negative Blood cultures: Negative Continue empiric IV ceftriaxone day #4, plan to transition to oral cefdinir to complete 10-day course upon discharge Add probiotics daily for at least 1 month PT OT evaluation pending Anticipate transition to [facility] 03/07 Stable Continue IV ceftriaxone day #5 L renal stone Recurrent nephrolithiasis Following with urology for known L stone, refused transfer from [facility] ER twice over the past 2 months, follows with Dr. Preciado CT abd/pelvis with no change in a 1.2 cm nonobstructing left renal pelvis calculus. No ureteral calculi. No hydronephrosis. Bilateral nephrolithiasis Flomax discontinued on 02/24 per ED note due to possibility of causing BLE edema Routine urology consult 03/07 Per urology service: No acute intervention for now Renal ultrasound ordered Appreciate the recommendations Acute kidney injury Cr 1.33 (baseline ~ 0.7) in setting of ? Bactrim use, med compliance unclear given recent confusion vs. large yet non-obstructive renal stone Creatinine back to baseline Giant Cell Arteritis Follows with Dr. Rudolph. Cont prednisone taper (currently should be taking 15mg daily through 03/18, then decrease according to med rec instructions) Receives monthly Tocilizumab inj in rheum clinic CAD Stable, cont aspirin, beta noe. Not on a home statin HTN Blood pressure improving Continue amlodipine 5 mg daily Asthma At respiratory baseline; continue PRN rescue inhaler, Advair Anxiety and depression Continue Zoloft Abnormal CT abd/pelvis finding Presence of a 1.4 cm nodular density within the posterior right breast. This may reflect postsurgical change or fibroglandular tissue. Correlation with surgical history is recommended H/o breast cancer s/p lumpectomy and Tamoxifen, PCP to follow up for possibility of repeat mammogram DVT Ppx: SQ heparin Code status: FULL CODE for now - brother at bedside feels patient would elect DNR status but no POLST or advanced directives listed in [facility], no designated POA and lacking decision making capacity Will call [facility] again to see if any code status on file PCP: Amanda Dispo: lives at SNF Admission and Anticipated Discharge Date Admission Date: March 03, 2023 Subjective Follow-up for encephalopathy, etc. Seen sitting up in bedside chair, in good spirits, comfortable States she feels fine overall Denies abdominal pain, flank pain, problems with urination No nausea or vomiting No other new symptoms Review of Systems Review of Systems: all noted and negative except for above Physical Exam 2 Physical Exam: General- oriented x 3, not in distress, speaks in sentences with no effort or accessory muscle use Eyes- anicteric Neck- no JVD Lungs- clear BS BL Heart- normal rate, regular rhythm; no murmurs Abdomen- normal bowel sounds, nondistended, soft, nontender Extremities- no pretibial edema, no calf tenderness Neuro- alert, oriented x 3; no gross focal neurologic deficits Skin- warm & dry Results & Data Results & Data Vital Signs (Past 12 Hours) Vital Signs Temp Pulse Resp BP Pulse Ox O2 Del Method 03/07/23 15:36 36.3 C L 64 18 119/74 96 Room Air 03/07/23 12:01 36.5 C 62 18 132/77 97 Room Air 03/07/23 08:24 36.3 C L 56 L 16 125/70 97 Room Air all noted and reviewed including below
[2023-03-07] MEDS: cefTRIAXone SODIUM 2,000 MG in DEXTROSE 5 % MINI-B 50 ML IV SCH (17:55)
[2023-03-08] MEDS: LEVOTHYROXINE SODIUM 100 MCG TABLET PO SCH (07:19)
[2023-03-08] MEDS: predniSONE 5 MG TAB PO SCH (08:30)
[2023-03-08] MEDS: ADVANCED PROBIOTIC 1250 MG CAPSULE PO SCH (08:30)
[2023-03-08] MEDS: METOPROLOL SUCC 50MG EXT REL TAB PO SCH (08:30)
[2023-03-08] MEDS: SERTRALINE HCL 50 MG TABLET PO SCH (08:30)
[2023-03-08] MEDS: amLODIPine BESYLATE 5 MG TAB PO SCH (08:30)
[2023-03-08] MEDS: HEPARIN SOD 5,000 UNIT/0.5 ML VIAL SQ SCH ×2 (08:30→21:35)
--- NOTE | 2023-03-08 15:44 | Hospitalist Progress Note ---
Date of Service March 08, 2023 Assessment & Plan (1) Acute metabolic encephalopathy: (2) Recurrent nephrolithiasis: (3) CAD (coronary artery disease): (4) HTN (hypertension): (5) Asthma: (6) Anxiety and depression: Plan Per admitting service notes with addendum This is an 87yo F independent resident at [facility] with a PMH of hypothyroidism, asthma, giant cell arteritis on prednisone, hypertension, CAD, recurrent nephrolithiasis, history of breast cancer and other medical problems listed below who who presents with ongoing confusion in the setting of UTI and renal stone. Metabolic encephalopathy Likely from partially treated UTI, tramadol In setting of partially treated UTI, large L renal stone with confusion and hallucinations over past 2 weeks Completed 2/7 days Cipro prescribed on 02/20, prescribed Bactrim on 03/02 and unclear if taking Urine and blood cultures pending, continue empiric Rocephin Also possibility of polypharmacy contributing due to patients ongoing AMS, lives alone, prescribed tramadol on 02/26 No h/o dementia previously. Admitting to visual hallucinations. Will obtain MRI brain today for further evaluation- will avoid contrast dye for now given GHANSHYAM Continue gentle hydration 03/05 Brain MRI: Negative for acute process Currently patient is oriented x 2, answers all questions appropriately Urine culture : Negative so far Continue IV ceftriaxone day #3 Hold tramadol Mental status improving PT OT evaluation 03/06 Patient is oriented x 3, back to her baseline mental status Urine culture negative Blood cultures: Negative Continue empiric IV ceftriaxone day #4, plan to transition to oral cefdinir to complete 10-day course upon discharge Add probiotics daily for at least 1 month PT OT evaluation pending Anticipate transition to [facility] [place] 03/07 Stable Continue IV ceftriaxone day #5 03/08 stable continue IV Ceftri Day 6 L renal stone Recurrent nephrolithiasis Following with urology for known L stone, refused transfer from [facility] ER twice over the past 2 months, follows with Dr. Preciado CT abd/pelvis with no change in a 1.2 cm nonobstructing left renal pelvis calculus. No ureteral calculi. No hydronephrosis. Bilateral nephrolithiasis Flomax discontinued on 02/24 per ED note due to possibility of causing BLE edema Routine urology consult 03/08 Per urology service: No acute intervention for now Renal ultrasound ordered Appreciate the recommendations Acute kidney injury Cr 1.33 (baseline ~ 0.7) in setting of ? Bactrim use, med compliance unclear given recent confusion vs. large yet non-obstructive renal stone Creatinine back to baseline Giant Cell Arteritis Follows with Dr. Rudolph. Cont prednisone taper (currently should be taking 15mg daily through 03/18, then decrease according to med rec instructions) Receives monthly Tocilizumab inj in rheum clinic CAD Stable, cont aspirin, beta noe. Not on a home statin HTN Blood pressure improving Continue amlodipine 5 mg daily Asthma At respiratory baseline; continue PRN rescue inhaler, Advair Anxiety and depression Continue Zoloft Abnormal CT abd/pelvis finding Presence of a 1.4 cm nodular density within the posterior right breast. This may reflect postsurgical change or fibroglandular tissue. Correlation with surgical history is recommended H/o breast cancer s/p lumpectomy and Tamoxifen, PCP to follow up for possibility of repeat mammogram DVT Ppx: SQ heparin Code status: FULL CODE for now - brother at bedside feels patient would elect DNR status but no POLST or advanced directives listed in [facility], no designated POA and lacking decision making capacity Will call [facility] again to see if any code status on file PCP: Amanda Dispo: awaiting acceptance to SNF Admission and Anticipated Discharge Date Admission Date: March 03, 2023 Subjective ff up for UTI, etc seen resting in chair, comfortable in good spirits states she feels fine overall no abdominal pain no dysuria, fever/chills answers all questions appropriately no other symptoms Review of Systems Review of Systems: all noted and negative except for above Physical Exam Physical Exam: General- oriented x 3, not in distress, speaks in sentences with no effort or accessory muscle use Eyes- anicteric Neck- no JVD Lungs- clear BS BL Heart- normal rate, regular rhythm; no murmurs Abdomen- normal bowel sounds, nondistended, soft, nontender Extremities- no pretibial edema, no calf tenderness Neuro- alert, oriented x 3; no gross focal neurologic deficits Skin- warm & dry Results & Data Results & Data Vital Signs (Past 12 Hours) Vital Signs Temp Pulse Resp BP Pulse Ox O2 Del Method 03/08/23 15:05 36.6 C 57 L 17 118/66 94 Room Air 03/08/23 07:25 36.5 C 55 L 16 135/79 94 Room Air all noted and reviewed including below
[2023-03-08] MEDS: cefTRIAXone SODIUM 2,000 MG in DEXTROSE 5 % MINI-B 50 ML IV SCH (17:52)
[2023-03-09] MEDS: LEVOTHYROXINE SODIUM 100 MCG TABLET PO SCH (05:23)
[2023-03-09] MEDS: ADVANCED PROBIOTIC 1250 MG CAPSULE PO SCH (07:35)
[2023-03-09] MEDS: amLODIPine BESYLATE 5 MG TAB PO SCH (07:35)
[2023-03-09] MEDS: SERTRALINE HCL 50 MG TABLET PO SCH (07:35)
[2023-03-09] MEDS: predniSONE 5 MG TAB PO SCH (07:36)
[2023-03-09] MEDS: METOPROLOL SUCC 50MG EXT REL TAB PO SCH (07:37)
[2023-03-09] MEDS: HEPARIN SOD 5,000 UNIT/0.5 ML VIAL SQ SCH (07:37)
--- NOTE | 2023-03-09 10:36 | Hospitalist Progress Note ---
Date of Service March 09, 2023 Assessment & Plan (1) Acute metabolic encephalopathy: (2) Recurrent nephrolithiasis: (3) CAD (coronary artery disease): (4) HTN (hypertension): (5) Asthma: (6) Anxiety and depression: Plan Per admitting service notes with addendum This is an 87yo F independent resident at [facility] with a PMH of hypothyroidism, asthma, giant cell arteritis on prednisone, hypertension, CAD, recurrent nephrolithiasis, history of breast cancer and other medical problems listed below who who presents with ongoing confusion in the setting of UTI and renal stone. Metabolic encephalopathy Likely from partially treated UTI, tramadol In setting of partially treated UTI, large L renal stone with confusion and hallucinations over past 2 weeks Completed 2/ days Cipro prescribed on 02/20, prescribed Bactrim on 03/02 and unclear if taking Urine and blood cultures pending, continue empiric Rocephin Also possibility of polypharmacy contributing due to patients ongoing AMS, lives alone, prescribed tramadol on 02/26 No h/o dementia previously. Admitting to visual hallucinations. Will obtain MRI brain today for further evaluation- will avoid contrast dye for now given GHANSHYAM Continue gentle hydration 03/05 Brain MRI: Negative for acute process Currently patient is oriented x 2, answers all questions appropriately Urine culture : Negative so far Continue IV ceftriaxone day #3 Hold tramadol Mental status improving PT OT evaluation 03/06 Patient is oriented x 3, back to her baseline mental status Urine culture negative Blood cultures: Negative Continue empiric IV ceftriaxone day #4, plan to transition to oral cefdinir to complete 10-day course upon discharge Add probiotics daily for at least 1 month PT OT evaluation pending Anticipate transition to [facility] [place] [facility] 03/07 Stable Continue IV ceftriaxone day #5 03/08 stable continue IV Ceftri Day 6 03/09 stable on IV Ceftri Day 09/29--> transition to Cefdinir check PRP if crea ok, will order Lasix 40mg po for leg edema L renal stone Recurrent nephrolithiasis Following with urology for known L stone, refused transfer from [facility] ER twice over the past 2 months, follows with Dr. Preciado CT abd/pelvis with no change in a 1.2 cm nonobstructing left renal pelvis calculus. No ureteral calculi. No hydronephrosis. Bilateral nephrolithiasis Flomax discontinued on 02/24 per ED note due to possibility of causing BLE edema Routine urology consult 03/09 Per urology service: No acute intervention for now Renal ultrasound ordered Appreciate the recommendations Acute kidney injury Cr 1.33 (baseline ~ 0.7) in setting of ? Bactrim use, med compliance unclear given recent confusion vs. large yet non-obstructive renal stone Creatinine back to baseline Giant Cell Arteritis Follows with Dr. Rudolph. Cont prednisone taper (currently should be taking 15mg daily through 03/18, then decrease according to med rec instructions) Receives monthly Tocilizumab inj in rheum clinic CAD Stable, cont aspirin, beta noe. Not on a home statin HTN Blood pressure improving Continue amlodipine 5 mg daily Asthma At respiratory baseline; continue PRN rescue inhaler, Advair Anxiety and depression Continue Zoloft Abnormal CT abd/pelvis finding Presence of a 1.4 cm nodular density within the posterior right breast. This may reflect postsurgical change or fibroglandular tissue. Correlation with surgical history is recommended H/o breast cancer s/p lumpectomy and Tamoxifen, PCP to follow up for possibility of repeat mammogram DVT Ppx: SQ heparin Code status: FULL CODE for now - brother at bedside feels patient would elect DNR status but no POLST or advanced directives listed in [facility], no designated POA and lacking decision making capacity Will call [facility] again to see if any code status on file PCP: Amanda Dispo: awaiting acceptance to SNF Admission and Anticipated Discharge Date Admission Date: March 03, 2023 Subjective ff up for encephalopathy, etc seen resting in bed, comfortable states she feels fine overall no problems with urination, fever/chills, abdominal/back pain in good spirits, smiling no other symptoms Review of Systems Review of Systems: all noted and negative except for above Physical Exam Physical Exam: General- oriented x 3, not in distress, speaks in sentences with no effort or accessory muscle use Eyes- anicteric Neck- no JVD Lungs- clear breath sounds bilaterally, no rales/wheezes Heart- normal rate, regular rhythm; no murmurs Abdomen- normal bowel sounds, nondistended, soft, nontender Extremities-mild pretibial edema, no calf tenderness Neuro- alert, oriented x 3; no gross focal neurologic deficits Skin- warm & dry Results & Data Results & Data Vital Signs (Past 12 Hours) Vital Signs Temp Pulse Resp BP Pulse Ox O2 Del Method 03/09/23 07:23 36.5 C 57 L 18 133/73 94 Room Air
[2023-03-09 11:25] LABS: BUN Creatinine Ratio 33.3 (10-20); Calcium 8.7 mg/dl (8.6-10.3); Creatinine Clr Calc Pharmacy 56.6 ml/min; Est GFR (African American) 80.3 ml/min; Est GFR (Non-African American) 69.3 ml/min; Potassium 4.3 mmol/L (3.5-5.1)
[2023-03-09] MEDS ORDERED: FUROSEMIDE 40 MG TAB PO ONE (12:45)
--- NOTE | 2023-03-09 13:16 | Discharge Summary ---
Discharge Summary Date of Service March 09, 2023 Notes For Next Care Provider Medication Changes From Visit Please see assessment and plan below. Admission HPI Per Admitting Provider This is an 87yo F independent resident at [facility] with a PMH of hypothyroidism, asthma, giant cell arteritis on prednisone, hypertension, CAD, recurrent nephrolithiasis, history of breast cancer and other medical problems listed below who who presents with ongoing confusion. Per extensive chart review, patient was seen at [facility] ED 02/20 with UTI and renal stone but signed out AMA. Staff at [facility] state she reportedly took 2.5 days (out of 7 day course) of ciprofloxacin and then stopped based on chart review. Patient was also prescribed Flomax during ED visit on 02/20 and returned to [facility] ED for pain with ambulation on left side and lower extremity edema that was thought to be a side effect of Flomax and improved once discontinued. Remains confused and significantly off of her mentation baseline per brother at bedside. 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 Unclear if patient has been taking medication appropriately or if at all since returning home from ED. Of note, was prescribed Tramadol on and Bactrim earlier this month but unclear if she has been taking either. Cannot obtain reliable history from patient as she is delirious and elderly brother at baseline has no knowledge of patient's medications. Was brought to a urology follow up appointment today by [facility] pick up driver for h/o large left renal calculus but was noted to be significantly confused with hallucinations and sent to [facility] ER for further evaluation. During interview, patient is laughing intermittently and calling me by the wrong name. Brother at baseline states this is significantly different than her baseline. Denies any pain. Unable to obtain full ROS 2/2 AMS. Denies auditory hallucinations but does endorse visual ones with "something floating on the wall". Brother states patient was paranoid about group outside of her [facility] listening to their conversation. Admission Exam Per Admitting Provider General Appearance: WD/WN, vitals as above, NAD, sitting up in bed, obese, pleasant, delirious, requiring re-direction Head: normocephalic, atraumatic Eyes: normal inspection, PERRL, conjunctivae normal, anicteric sclerae ENT: external ear and nose normal, oropharynx normal Neck: normal visual inspection, trachea midline, no thyromegaly Respiratory: normal respiratory effort, diminished lung sounds throughout, no wheeze, rales, rhonchi. No accessory muscle use Cardiovascular: regular rate, rhythm, no murmur, normal peripheral pulses, no BLE edema. Vessels: no JVD Chest: normal inspection of chest Abdomen/GI: normal bowel sounds, soft, nontender, no hepatosplenomegaly Extremities/Musculoskeletal: no cyanosis or clubbing, extremities motor strength 5/5 Neurologic: PERRL, EOMI, accommodation nl, no face palsy, no dysarthria, CN's II-XI intact bilaterally and moves all extremities Psychiatric: A+Ox person and time but not place or situation Skin: no rashes, normal color, warm/dry Principal Dx & Hospital Course #1 = Principal Diagnosis (1) Acute metabolic encephalopathy: (2) Recurrent nephrolithiasis: (3) CAD (coronary artery disease): (4) HTN (hypertension): (5) Asthma: (6) Anxiety and depression: Plan Per admitting service notes with addendum This is an 87yo F independent resident at [facility] with a PMH of hypothyroidism, asthma, giant cell arteritis on prednisone, hypertension, CAD, recurrent nephrolithiasis, history of breast cancer and other medical problems listed below who who presents with ongoing confusion in the setting of UTI and renal stone. Metabolic encephalopathy Likely from partially treated UTI, tramadol In setting of partially treated UTI, large L renal stone with confusion and hallucinations over past 2 weeks Completed 2/7 days Cipro prescribed on 02/20, prescribed Bactrim on 03/02 and unclear if taking Urine and blood cultures pending, continue empiric Rocephin Also possibility of polypharmacy contributing due to patients ongoing AMS, lives alone, prescribed tramadol on 02/26 03/05 Brain MRI: Negative for acute process Tramadol discontinued Patient is oriented x 3, back to her baseline mental status Urine culture negative Blood cultures: Negative completed 7 day course of IV Ceftriaxone, continue 3 more days of Cefdinir 300mg BID to complete 10 day course probiotics daily for at least 1 month continue PT OT transition to [facility] L renal stone Recurrent nephrolithiasis Following with urology for known L stone, refused transfer from [facility] twice over the past 2 months, follows with Dr. Preciado CT abd/pelvis with no change in a 1.2 cm nonobstructing left renal pelvis calculus. No ureteral calculi. No hydronephrosis. Bilateral nephrolithiasis Flomax discontinued on 02/24 per ED note due to possibility of causing BLE edema Routine urology consult 03/09 Per urology service: No acute intervention for now ff up with [facility] U[facility]ist in 1-2 weeks Acute kidney injury Cr 1.33 (baseline ~ 0.7) in setting of ? Bactrim use, med compliance unclear given recent confusion vs. large yet non-obstructive renal stone Creatinine back to baseline Giant Cell Arteritis Follows with Dr. Rudolph. Cont prednisone taper (currently should be taking 15mg daily through 03/18, then decrease according to med rec instructions, end of Prednisone taper 04/06/23) Receives monthly Tocilizumab inj in rheum clinic CAD Stable, cont aspirin, beta noe. Not on a home statin HTN Blood pressure improving Continue amlodipine 5 mg daily Asthma At respiratory baseline; continue PRN rescue inhaler, Advair Anxiety and depression Continue Zoloft Abnormal CT abd/pelvis finding Presence of a 1.4 cm nodular density within the posterior right breast. This may reflect postsurgical change or fibroglandular tissue. Correlation with surgical history is recommended H/o breast cancer s/p lumpectomy and Tamoxifen, PCP to follow up for possibility of repeat mammogram DVT Ppx: SQ heparin Code status: FULL CODE for now - brother at bedside feels patient would elect DNR status but no POLST or advanced directives listed in [facility], no designated POA and lacking decision making capacity PCP: Amanda Dispo: transition to [facility] Exam General- oriented x 3, not in distress, speaks in sentences with no effort or accessory muscle use Eyes- anicteric Neck- no JVD Lungs- clear breath sounds bilaterally, no rales/wheezes Heart- normal rate, regular rhythm; no murmurs Abdomen- normal bowel sounds, nondistended, soft, nontender Extremities-mild pretibial edema, no calf tenderness Neuro- alert, oriented x 3; no gross focal neurologic deficits Skin- warm & dry Updated Medication List Medication Instructions Recorded Confirmed Type fluticasone 100 mcg-salmeterol 50 1 inh inhalation AMPM PRN ASTHMA 12/10/21 03/03/23 History mcg/dose blistr powdr for inhalation levothyroxine 100 mcg capsule 100 mcg PO QAM 12/10/21 03/03/23 History sertraline 50 mg tablet 50 mg PO QAM 12/10/21 03/03/23 History tramadol 50 mg tablet 50 mg PO BID PRN pain #11 tabs 02/26/23 03/03/23 Rx albuterol sulfate 90 mcg/actuation 2 inh inhalation QID PRN Shortness 03/03/23 03/03/23 History aerosol inhaler (Ventolin HFA) Of Breath Or Wheezing amlodipine 5 mg tablet 5 mg PO DAILY 03/03/23 03/03/23 History furosemide 40 mg tablet 40 mg PO DAILY PRN volume 03/03/23 03/03/23 History metoprolol succinate 200 mg 200 mg PO DAILY 03/03/23 03/03/23 History tablet,extended release 24 hr (Toprol XL) prednisone 5 mg tablet See Rx Instructions .Route .COMPLEX 03/03/23 03/03/23 History sulfamethoxazole 800 1 tab PO BID 03/03/23 03/03/23 History mg-trimethoprim 160 mg tablet tocilizumab 400 mg/20 mL (20 520 mg IV UD 03/03/23 03/03/23 History mg/mL) intravenous solution L.acidop,casei,lactis,rham-B.lact,sammy 2 cap PO DAILY 30 days #60 caps 03/09/23 Rx 625 mg (10 billion cell) capsule (Advanced Probiotic) cefdinir 300 mg capsule 300 mg PO BID 3 days #6 caps 03/09/23 Rx prednisone 5 mg tablet 5 mg PO UD 21 days #21 tabs 03/09/23 Rx Hospital Stay Data Consultations 03/03/23 14:16 ED Decision to Admit Stat 03/03/23 16:28 Consult Urology Routine Diagnostic Imagining Performed Laboratory Results WBC 8.61 K/ul (4.8-10.8) 03/05/23 06:34 RBC 3.94 M/uL (4.20-5.40) L 03/05/23 06:34 Hgb 13.0 g/dl (12.0-16.0) 03/05/23 06:34 Hct 39.0 % (37.0-47.0) 03/05/23 06:34 MCV 99.0 fL (80.0-100.0) 03/05/23 06:34 MCH 33.0 pg (25.0-34.0) 03/05/23 06:34 MCHC 33.3 g/dL (32.0-36.0) 03/05/23 06:34 RDW Std Deviation 49.1 fL (36.4-46.3) H 03/05/23 06:34 RDW Coeff of Parvin 13.3 % (11.5-14.5) 03/05/23 06:34 Plt Count 189 K/uL (130-400) 03/05/23 06:34 MPV 9.8 fL (9.4-12.4) 03/05/23 06:34 Immature Gran % (Auto) 0.7 % 03/03/23 10:31 Neut % (Auto) 72.6 % 03/03/23 10:31 Lymph % (Auto) 13.7 % 03/03/23 10:31 [place] % (Auto) 10.4 % 03/03/23 10:31 Eos % (Auto) 1.9 % 03/03/23 10:31 Baso % (Auto) 0.7 % 03/03/23 10:31 Neut # (Auto) 4.96 K/uL (1.40-6.50) 03/03/23 10:31 Lymph # (Auto) 0.94 K/uL (1.20-3.40) L 03/03/23 10:31 [place] # (Auto) 0.71 K/uL (0.11-0.59) H 03/03/23 10:31 Eos # (Auto) 0.13 K/uL (0.00-0.50) 03/03/23 10:31 Baso # (Auto) 0.05 K/uL (0.00-0.20) 03/03/23 10:31 Immature Gran # (Auto) 0.05 K/uL (0.01-0.20) 03/03/23 10:31 Sodium 133 mmol/L (136-145) L 03/09/23 10:52 Potassium 4.3 mmol/L (3.5-5.1) 03/09/23 10:52 Chloride 101 mmol/L (98-107) 03/09/23 10:52 Carbon Dioxide 29 mmol/L (21-32) 03/09/23 10:52 Anion Gap 3 (3-11) 03/09/23 10:52 BUN 26 mg/dl (6-23) H 03/09/23 10:52 Creatinine 0.78 mg/dl (0.6-1.2) 03/09/23 10:52 Est Cr Clr Drug Dosing 56.6 ml/min 03/09/23 10:52 Est GFR ( Amer) 80.3 ml/min 03/09/23 10:52 Est GFR (Non-Af Amer) 69.3 ml/min 03/09/23 10:52 BUN/Creatinine Ratio 33.3 (10-20) H 03/09/23 10:52 Glucose 149 mg/dl (70-99(Fasting)) H 03/09/23 10:52 Calcium 8.7 mg/dl (8.6-10.3) 03/09/23 10:52 Magnesium 1.8 mg/dl (1.7-2.4) 03/03/23 10:31 Total Bilirubin 1.0 mg/dl (0.2-1.0) 03/03/23 10:31 AST 20 U/L (13-39) 03/03/23 11:55 ALT 12 U/L (7-52) 03/03/23 10:31 Alkaline Phosphatase 56 U/L (34-104) 03/03/23 10:31 Total Protein 6.3 gm/dl (6.0-8.3) 03/03/23 10:31 Albumin 4.1 gm/dl (3.4-5.0) 03/03/23 10:31 Globulin 2.2 gm/dl (2.5-4.0) L 03/03/23 10:31 Albumin/Globulin Ratio 1.9 (0.9-2) 03/03/23 10:31 TSH 6.578 uIu/ml (0.300-4.500) H 03/03/23 10:31 Free T4 1.54 ng/dl (0.61-1.60) 03/03/23 10:31 Urine Color Yellow 03/03/23 12:15 Urine Appearance Clear (Clear) 03/03/23 12:15 Urine pH 5.0 (4.5-7.5) 03/03/23 12:15 Ur Specific [place] 1.012 (1.000-1.030) 03/03/23 12:15 Urine Protein Trace (Negative) H 03/03/23 12:15 Urine Glucose (UA) Negative (Negative) 03/03/23 12:15 Urine Ketones Trace (Negative) H 03/03/23 12:15 Urine Blood 2+ (Negative) H 03/03/23 12:15 Urine Nitrite Negative (Negative) 03/03/23 12:15 Urine Bilirubin Negative (Negative) 03/03/23 12:15 Urine Urobilinogen Negative (Negative) 03/03/23 12:15 Ur Leukocyte Esterase Negative (Negative) 03/03/23 12:15 Urine WBC (Auto) 1-5 /hpf (0-5) 03/03/23 12:15 Urine RBC (Auto) 10-30 /hpf (0-4) H 03/03/23 12:15 U Hyaline Cast (Auto) 1-5 /lpf (0-5) 03/03/23 12:15 U Epithel Cells (Auto) 10-20 /lpf (0-5) H 03/03/23 12:15 Urine Bacteria (Auto) Negative (Negative) 03/03/23 12:15 Nasal Screen MRSA (PCR) Negative (Negative) 03/03/23 Unknown Adenovirus (PCR) Not Detected (NotDetected) 03/03/23 11:33 B. pertussis DNA (PCR) Not Detected (NotDetected) 03/03/23 11:33 B.parapertussis DNA PCR Not Detected (NotDetected) 03/03/23 11:33 C. pneumoniae DNA (PCR) Not Detected (NotDetected) 03/03/23 11:33 Coronavirus OC43 (PCR) Not Detected (NotDetected) 03/03/23 11:33 Coronavirus HKU1 (PCR) Not Detected (NotDetected) 03/03/23 11:33 Coronavirus 229E (PCR) Not Detected (NotDetected) 03/03/23 11:33 SARS-CoV-2 (PCR) Not Detected (NotDetected) 03/03/23 11:33 Coronavirus NL63 (PCR) Not Detected (NotDetected) 03/03/23 11:33 Human Metapneumovir PCR Not Detected (NotDetected) 03/03/23 11:33 Influenza Type A (PCR) Not Detected (NotDetected) 03/03/23 11:33 Influenza Type B (PCR) Not Detected (NotDetected) 03/03/23 11:33 M. pneumoniae (PCR) Not Detected (NotDetected) 03/03/23 11:33 Parainfluenza 1 (PCR) Not Detected (NotDetected) 03/03/23 11:33 Parainfluenza 2 (PCR) Not Detected (NotDetected) 03/03/23 11:33 Parainfluenza 3 (PCR) Not Detected (NotDetected) 03/03/23 11:33 Parainfluenza 4 (PCR) Not Detected (NotDetected) 03/03/23 11:33 RSV (PCR) Not Detected (NotDetected) 03/03/23 11:33 Entero/Rhino (PCR) Not Detected (NotDetected) 03/03/23 11:33 Impressions Abdomen/Pelvis CT 03/03/23 11:02 CT OF THE ABDOMEN AND PELVIS WITHOUT CONTRAST CLINICAL HISTORY: confusion; abdominal pain. H/o stones COMPARISON STUDY: CT of the abdomen and pelvis February 26, 2023. TECHNIQUE: Axial images of the abdomen and pelvis were obtained without IV contrast. Images were reviewed in the axial, sagittal, and coronal planes. Automated exposure control was utilized for the study. A dose lowering technique was utilized adhering to the principles of ALARA. FINDINGS: A 1.4 cm nodular density within the posterior right breast on axial image 1 of 341 is partially imaged on this examination. No pneumatosis, free air or portal venous gas is present. A 1.2 cm nonobstructing left renal pelvis calculus is unchanged. There are no ureteral calculi. There is no hydro nephrosis. Additional bilateral renal calculi measure up to 5 mm. There is no evidence for a bowel obstruction. Moderate amount of stool within the colon is present. Unenhanced images of the liver, spleen and adrenal glands are unremarkable. Multiple cystic pancreatic lesions are noted. These were shown on CT of February 26, 2023. 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 Measure up to approximately 2 cm. Pancreatic ductal dilatation is better depicted on prior CT. There is no ascites. No lymphadenopathy within the abdomen or pelvis is noted. No acute fractures identified within the visualized skeletal structures. The gallbladder is likely surgically absent. IMPRESSION: 1. No change in a 1.2 cm nonobstructing left renal pelvis calculus. No ureteral calculi. No hydronephrosis. Bilateral nephrolithiasis. 2. No acute process within the abdomen or pelvis on unenhanced exam. 3. 1.4 cm nodular density within the posterior right breast. This may reflect postsurgical change or fibroglandular tissue. Correlation with surgical history is recommended. If indicated, a follow-up mammogram and ultrasound could be obtained to exclude a neoplasm. ACT 112: Positive. There are findings on this exam that require communication between the performing entity and the patient following Patient Test Result Information Act ([place] Act 112) guidelines. Electronically signed by: Shahram Enriquez M.D. 03/03/2023 1:08 PM Chest X-Ray 03/03/23 11:02 XR chest 1V portable HISTORY: weakness COMPARISON: Chest 11/07/2011. FINDINGS: Slightly rotated study. The heart remains mildly enlarged. Advanced degenerative changes within the right shoulder. No acute fractures identified. No focal lung consolidations to suggest a pneumonia. No evidence for pulmonary edema. No pleural effusions. No pneumothorax. IMPRESSION: No significant change compared to the prior study. No acute process. ACT 112: Negative or not required by law. Electronically signed by: Prieto Staton M.D. 03/03/2023 11:[address] 03/03/23 11:02 CT head/brain wo con CLINICAL HISTORY: 87 years-old Female with confusion. Acutely altered mental status TECHNIQUE: Multiple axial CT images of the head were obtained without contrast. A dose lowering technique was utilized adhering to the principles of ALARA. COMPARISON: None. FINDINGS: No acute intracranial hemorrhage, midline shift, intracranial mass, hydrocephalus, territorial ischemia or abnormal extra-axial collection. Cavum septum pellucidum and vergae. Involutional changes with chronic microvascular ischemic disease. The calvarium is intact. Prior bilateral lens repair. The paranasal sinuses, mastoid air cells, and middle ear cavities are clear. IMPRESSION: No acute intracranial abnormality. ACT 112: Negative or not required by law. The above report was generated using voice recognition software. It may contain grammatical, syntax or spelling errors. Electronically signed by: Rei Sparrow M.D. 03/03/2023 12:59 PM Brain MRI 03/03/23 16:22 Exam(s): MRI HEAD Without Contrast EXAM: MR Head Without Intravenous Contrast CLINICAL HISTORY: Reason for exam: confusion. TECHNIQUE: Magnetic resonance images of the head/brain without intravenous contrast in multiple planes. COMPARISON: No relevant prior studies available. FINDINGS: No acute territorial infarct. No acute intracranial hemorrhage. No midline shift or mass effect. The territorial otero-white matter differentiation is maintained throughout. Age-related cerebral volume loss. Periventricular and subcortical white matter T2 signal intensity, consistent with chronic microangiopathy. The visualized orbits appear grossly unremarkable. The calvarium is intact. The visualized paranasal sinuses and mastoid air cells are grossly clear. IMPRESSION: No acute territorial infarct. No acute intracranial hemorrhage. No midline shift or mass effect. Electronically signed by: Gabriel Zimmerman MD 03/03/23 19:58 PM Renal Ultrasound 03/06/23 11:40 ULTRASOUND KIDNEYS AND BLADDER CLINICAL HISTORY: Left sided nephrolithiasis.. COMPARISON STUDY: Abdominal CT dated 03/03/2023. TECHNIQUE: Real-time, grayscale, and color flow sonography of the kidneys and bladder is performed. Images are reviewed in the transverse and longitudinal planes. FINDINGS: Kidneys: The kidneys demonstrate mild cortical atrophy. Echotexture is normal. The right kidney measures 10.2 x 5.1 x 4.6 cm and the left kidney measures 9.9 x 4.1 x 5.2 cm. There is no hydronephrosis. A 14 mm shadowing calculus is seen in the left renal pelvis. No shadowing calculi are identified in the right kidney. There is no sonographic evidence of contour deforming renal mass lesion. No perinephric fluid is identified. Bladder: The bladder is decompressed and could not be assessed. IMPRESSION: 1. The kidneys demonstrate cortical atrophy and are without hydronephrosis. 2. The bladder was decompressed and could not be assessed. 3. A 14 mm shadowing calculus is noted in the left renal pelvis. ACT 112: Negative or not required by law. Electronically signed by: Jose Lunsford M.D. 03/06/2023 8:56 PM 03/03/23 11:02 CT abd pelvis wo con Stat CT head/brain wo con Stat 03/03/23 16:22 MR brain wo con Urgent 03/06/23 11:40 US Renal Bladder [US renal/blad retro comp] Routine Pending Results Patient Have Any Pending Studies at Discharge: No Discharge Instructions Given to Patient (Per Discharging Provider) PLEASE REFER TO YOUR NEW MEDICATION LIST AND FOLLOW INSTRUCTIONS CAREFULLY. YOUR NEW MEDICATIONS INCLUDE: Cefdinir- antibiotic for UTI Probiotics daily x 1 month Continue Prednisone taper until 04/06/23. PLEASE CALL YOUR PRIMARY CARE PHYSICIAN OR RETURN TO THE ER IF WITH WORSENING OF SYMPTOMS, INCLUDING confusion, weakness, fever/chills, abdominal/flank/back pain, problems with urination, etc FOLLOW UP WITH PRIMARY CARE PHYSICIAN IN 1 WEEK. FOLLOW UP WITH UROLOGIST IN 1-2 WEEKS. Total Time Total Time Spent Total Time Spent (In Minutes): >30 minutes
== END 2023-03-09 14:47 | DRG 689 ==
LOC: ED 09:58 → SUATTDRO 15:17 → 3W 15:17